=== PATIENT | male | born 1970 | race Caucasian/White ===

== ENCOUNTER 2018-11-07 19:32 | Observation (INO) ==
[2018-11-07 19:48] LABS: Basophils # 0.1 K/mm3 (0-0.2); Basophils % 0.6 % (0.1-2.0); Eosinophils # 0.1 K/mm3 (0.0-0.4); Eosinophils % 0.6 % (0.1-12.0); Hematocrit 43.9 % (42.0-52.0); Hemoglobin 14.8 g/dL (14.1-18.0); Lymphocytes # 2.3 K/mm3 (0.7-4.5); Lymphocytes % 25.2 % (10-50); Mean Corpuscular HGB Conc 33.6 g/dL (31.8-35.4); Mean Corpuscular Volume 88.5 fl (80-94); Mean Platelet Volume 7.1 fl (7.4-10.4); Monocytes # 0.5 K/mm3 (0.1-1.0); Monocytes % 5.1 % (1.7-9.3); Neutrophils # 6.1 K/mm3 (1.8-7.8); Neutrophils % 68.4 % (37.0-80.0); Platelet Count 267 K/mm3 (142-424); Red Blood Count 4.96 M/mm3 (4.60-6.20); White Blood Count 8.9 K/mm3 (4.8-10.8)
--- NOTE | 2018-11-07 20:25 | Emergency Department Note ---
ED Disposition Clinical Impression: Hypertension, Chest pain, Tobacco user Disposition: Admitted as Observation Condition on Discharge: Fair Time of Disposition: 20:33 - Critical Care Critical Care Time: No Attestation: On 11/07/18, the high probability of a clinically significant, sudden or life threatening deterioration of the following system(s) required my full and direct attention, intervention and personal management. The time I documented below is in addition to time spent performing reported procedures but includes the following listed in this critical care notation. Medical Decision Making - Medical Records Medical records reviewed: Yes: I reviewed the patient's medical records. - Yang Inquiry Pt receiving controlled substance: No Yang was queried for this patient: No Vital Signs: 11/07/18 19:32 11/07/18 19:42 Temperature 98.0 F Temperature Source Oral Pulse Rate [Right Radial] 96 H 101 H Respiratory Rate 18 19 Blood Pressure [Right Arm] 178/124 H 121/76 Blood Pressure Mean [Right Arm] 142 91 02 Sat by Pulse Oximetry 92 L 97 Oxygen Delivery Method Room Air - Lab Data Lab results reviewed: Yes: I reviewed the patient's lab results. Lab Results 11/07/18 19:37: WBC 8.9, RBC 4.96, Hgb 14.8, Hct 43.9, MCV 88.5, MCH 29.8, MCHC 33.6, RDW 13.0, Plt Count 267, MPV 7.1 L, Neut % (Auto) 68.4, Lymph % (Auto) 25.2, [place] % (Auto) 5.1, Eos % (Auto) 0.6, Baso % (Auto) 0.6, Neut # (Auto) 6.1, Lymph # (Auto) 2.3, [place] # (Auto) 0.5, Eos # (Auto) 0.1, Baso # (Auto) 0.1 11/07/18 20:00: Sodium 139, Potassium 3.3 L, Chloride 101, Carbon Dioxide 26, Anion Gap 15.3 H, BUN 15, Creatinine 1.23, Estimated Creat Clear 107, Estimated GFR 62, Est GFR ( Amer) 75, Glucose 124 H, Calcium 9.3, Troponin I < 0.02 Result diagrams: 11/07/18 19:37 11/07/18 20:00 Orders (Tests/Meds): ED MEDICATIONS Generic Name Dose Route Start Last Admin Trade Name Danilo PRN Reason Stop Dose Admin Nitroglycerin 1 gm 11/07/18 21:00 11/07/18 20:39 Nitroglycerin 1 Inch Oint Udp TD 12/07/18 20:59 1 gm TID RABIA Administration Discontinued Medications Generic Name Dose Route Start Last Admin Trade Name Danilo PRN Reason Stop Dose Admin Aspirin 324 mg 11/07/18 19:37 11/07/18 19:38 Aspirin 81mg Chewable Tablet PO 11/07/18 19:38 324 mg ONCE ONE Administration Nitroglycerin 0.4 mg 11/07/18 19:37 11/07/18 19:38 Nitrostat 0.4mg Sl Tablet SL 11/07/18 19:38 0.4 mg ONCE ONE Administration ORDERS Category Date Time Status XR chest 2V Stat Exams 11/07/18 19:36 Taken - Physician Consults Physician Consulted: eric Reason -: Pt condition Additional Consult: luther Reason -: Admission - VIRIDIANA Score for Non-Stemi Age of Patient: 50-59 years old Heart Rate: 90-109 bpm Systolic Blood Pressure: 160-199 mmHg Serum Creatinine: 1.20-1.59 mg/dl CHF [place] Class: I-No CHF Other Risk Factors: None Non-Stemi Risk Score: 76 General Adult HPI - General Chief complaint: Chest Pain Stated complaint: Chest Pain Time Seen by Provider: 11/07/18 20:15 Mode of Arrival: Ambulatory Source of Information: Patient Limitations: No Limitations Description of Symptoms (Recalled from ER Triage Doc. by RN): pt states he has been having left sided chest pain x 3-4 days that worsens at times. pt states he is getting "winded." pt states that he thought he was having reflux but the zantac isnt helping. pt states that this evening he walked outside and he started having the pain that radiates into his left arm and even into his leg. pt states he became short of breath and broke out in a sweat. pt states the pain feels like someone is standing on his chest. - Related Data Home Medications Medication Instructions Recorded Confirmed aspirin 81 mg tablet,delayed 81 mg PO DAILY tab 09/20/17 03/29/18 release Carvedilol [Carvedilol 6.25mg Tab] 6.25 mg PO BID 11/07/18 11/07/18 Losartan/Hydrochlorothiazide 1 tab PO DAILY 11/07/18 11/07/18 [Hyzaar 100-25 Tablet] Allergies Allergy/AdvReac Type Severity Reaction Status Date / Time No Known Allergies Allergy Verified 11/07/18 19:36 [facility] History - Hepatitis A Screen Drug use history?: No High risk sexual behaviors?: No History of sexually transmitted infection?: No Currently employed?: No Childcare worker?: No Do you have indoor plumbing?: Yes Do you have electricity?: Yes Attestation statement:: This patient has been screened for Hepatitis A risk factors. I have reviewed the patient's past medical history: Yes Medical History: Reports:: Coronary Artery Disease, Gastroesophageal Reflux Disease(GERD), Hyperlipidemia, Hypertension Denies:: Diabetes Mellitus Type 1, Diabetes Mellitus Type 2 Other Surgeries: Yes: Cardiac Catheterization - Social History Smoking Status: Current every day smoker Tobacco Type: cigarettes # Packs/Day (cigarettes): 1 Alcohol Intake: never Alcohol Intake Frequency:: holidays/special occasions only Substance Use Type: denies use Occupational Status: employed Household Members: spouse Family Hx:: Coronary Artery Disease, Heart Attack, Stroke ROS Obtained: Yes All systems reviewed & no additional complaints - Constitutional Constitutional: Reports fever(s) - Cardiovascular Cardiovascular: Reports chest pain, Reports chest pain at rest, Reports dyspnea - Respiratory Respiratory: Yes system reviewed and no additional complaints, except as docu, Yes cough, Yes dyspnea on exertion - Gastrointestinal Gastrointestingal: Denies: abdominal pain - Musculoskeletal Musculoskeletal: Denies joint pain, Denies joint stiffness, Denies joint swelling - Integumentary/Breasts Skin/Breast: Denies rash, Denies skin pain - Neurologic Neurologic: Denies abnormal gait, Denies abnormal movements, Denies confusion - Hematologic/Lymphatic Henatologic/Lymphatic: Denies easy bleeding, Denies easy bruising Physical Exam - General General appearance: alert, in no apparent distress - Head Head exam: atraumatic - Eye Eye exam: Present: normal appearance - ENT ENT exam: Present: normal exam, normal oropharynx, mucous membranes moist, TM's normal bilaterally, normal external ear exam - Neck Neck exam: Present: normal inspection, full ROM, trachea midline. Absent: meningismus, lymphadenopathy - Chest Chest inspection: Present: normal inspection, symmetric chest wall rise. Absent: tenderness - Respiratory Respiratory exam: Present: respiratory distress, wheezes. Absent: prolonged expiratory phase - Cardiovascular Cardiovascular exam: Present: regular rate, normal rhythm - Abdominal Exam Abdominal exam: Present: soft, normal bowel sounds. Absent: distention, tenderness, guarding - Extremities Exam Extremities exam: Present: normal inspection - Neurological Exam Neurological exam: Present: alert, oriented X3 - Psychiatric Psychiatric exam: Present: normal affect, normal mood - Skin Skin exam: Present: warm, dry, intact, normal color
[2018-11-07 20:26] LABS: Anion Gap 15.3 mEq/L (5-15); Blood Urea Nitrogen 15 mg/dL (7-18); Calcium 9.3 mg/dL (8.5-10.1); Carbon Dioxide 26 mmol/L (21.0-32.0); Chloride 101 mmol/L (98-107); Glucose 124 mg/dL (74-106); Sodium 139 mmol/L (136-145)
--- NOTE | 2018-11-07 21:50 | History & Physical Report ---
*Admission Date: 11/07/18 *Chief complaint: chest pain *History of present illness: this wm who has ongoing chest pain and had been seen by card about 2 weeks ago - presented to the ed - t states he has been having left sided chest pain x 3-4 days that worsens at times. pt states he is getting "winded." pt states that he thought he was having reflux but the zantac isnt helping. pt states that this evening he walked outside and he started having the pain that radiates into his left arm and even into his leg. pt states he became short of breath and broke out in a sweat. pt states the pain feels like someone is standing on his chest.pt had ntg which relieved his chest pain and was admitted for serial enz and card consult [facility] History I have reviewed the patient's past medical history: Yes Medical History: Reports:: Coronary Artery Disease, Gastroesophageal Reflux Disease(GERD), Hyperlipidemia, Hypertension Denies:: Diabetes Mellitus Type 1, Diabetes Mellitus Type 2 *Have you ever received a pneumonia vaccine?: No *Have you received a flu vaccine this season?: No Other Surgeries: Yes: Cardiac Catheterization - *Social History Smoking Status: Current every day smoker Tobacco Type: cigarettes # Packs/Day (cigarettes): 1 Alcohol Intake: never Alcohol Intake Frequency:: holidays/special occasions only Substance Use Type: denies use *Occupational Status:: employed Household Members: spouse *Travel in the last 8 weeks: None Family Hx:: Coronary Artery Disease, Heart Attack, Stroke Review of Systems - Review of Systems Review of systems:: pertinent systems reviewed and negative unless documented below - Constitutional Denies fever(s) - Eyes Denies change in vision - ENT Denies sore throat - *Cardiovascular Reports chest pain at rest, Reports chest pain with activity, Reports radiating jaw, neck or arm pain - *Respiratory Denies cough - *Gastrointestinal Denies abdominal pain - *Genitourinary Denies blood in urine - *Musculoskeletal Denies joint pain - Integumentary/Breasts Denies rash - *Neurologic Denies abnormal walking, Denies abnormal movements, Denies confusion - Psychiatric Denies anxiety Meds Home Medications Medication Instructions Recorded Confirmed Type aspirin 81 mg tablet,delayed 81 mg PO DAILY tab 09/20/17 11/07/18 History release Carvedilol [Carvedilol 6.25mg Tab] 6.25 mg PO BID 11/07/18 11/07/18 History Losartan/Hydrochlorothiazide 1 tab PO DAILY 11/07/18 11/07/18 History [Hyzaar 100-25 Tablet] Allergies Allergy/AdvReac Type Severity Reaction Status Date / Time No Known Allergies Allergy Verified 11/07/18 19:36 Exam Vital signs and Labs for Last 24 Hours: Temp Pulse Resp BP Pulse Ox 98 F 74 16 126/79 97 11/07/18 21:05 11/07/18 21:05 11/07/18 21:05 11/07/18 21:05 11/07/18 19:42 Laboratory Results - last 24 hr 11/07/18 19:37: WBC 8.9, RBC 4.96, Hgb 14.8, Hct 43.9, MCV 88.5, MCH 29.8, MCHC 33.6, RDW 13.0, Plt Count 267, MPV 7.1 L, Neut % (Auto) 68.4, Lymph % (Auto) 25.2, Lane % (Auto) 5.1, Eos % (Auto) 0.6, Baso % (Auto) 0.6, Neut # (Auto) 6.1, Lymph # (Auto) 2.3, Lane # (Auto) 0.5, Eos # (Auto) 0.1, Baso # (Auto) 0.1 11/07/18 20:00: Sodium 139, Potassium 3.3 L, Chloride 101, Carbon Dioxide 26, Anion Gap 15.3 H, BUN 15, Creatinine 1.23, Estimated Creat Clear 107, Estimated GFR 62, Est GFR ( Amer) 75, Glucose 124 H, Calcium 9.3, Troponin I < 0.02 I & O for Last 24 hours: Intake & Output 11/05/18 11/06/18 11/07/18 11/08/18 11:59 11:59 11:59 11:59 Weight 232 lb - Constitutional no acute distress, obese - *Routine HEENT Exam Head: Present: normocephalic Eye: Present: EOMI, PERRL ENT: Present: mucous membranes dry - *Routine Neck Exam Present: supple - *Routine Respiratory Exam Present: CTA bilaterally - *Routine Cardiovascular Exam Present: RRR, murmur - *Routine Abdominal Exam Present: soft - *Routine Extremities Exam Present: full ROM. Absent: calf tenderness - *Routine Skin Exam Present: intact - *Routine Neurological Exam Present: alert, oriented X3, CN II-XII intact - Routine Psychiatric Exam Present: normal affect Assessment and Plan (1) Obesity (BMI 30-39.9) Current visit: Yes Status: Acute Category: Medical Code(s): E66.9 - Obesity, unspecified (2) Chest pain Current visit: Yes Status: Acute Qualifiers: Chest pain type: precordial pain Qualified Code(s): R07.2 - Precordial pain Category: Medical Code(s): R07.9 - Chest pain, unspecified (3) Tobacco user Current visit: Yes Status: Chronic Category: Medical Code(s): Z72.0 - T obacco use (4) Hypertension Current visit: Yes Status: Acute Category: Medical Code(s): I10 - Essential (primary) hypertension
[2018-11-08 07:07] LABS: Basophils % 0.7 % (0.1-2.0); Eosinophils # 0.1 K/mm3 (0.0-0.4); Eosinophils % 1.5 % (0.1-12.0); Hematocrit 40.7 % (42.0-52.0); Hemoglobin 13.9 g/dL (14.1-18.0); Lymphocytes # 1.8 K/mm3 (0.7-4.5); Lymphocytes % 28.8 % (10-50); Mean Corpuscular Volume 90.7 fl (80-94); Monocytes # 0.5 K/mm3 (0.1-1.0); Monocytes % 8.4 % (1.7-9.3); Neutrophils # 3.8 K/mm3 (1.8-7.8); Neutrophils % 60.6 % (37.0-80.0); Platelet Count 243 K/mm3 (142-424); Red Blood Count 4.49 M/mm3 (4.60-6.20); Red Cell Distribution Width 13.2 % (11.5-17.5); White Blood Count 6.2 K/mm3 (4.8-10.8)
[2018-11-08 07:20] LABS: Chol/HDL Ratio 6.4 (1-3.5)
--- NOTE | 2018-11-08 07:22 | Pharmacy Consult Notes ---
[facility] Pharmacy VTE Monitoring - Patient Demographics Admission date: 11/07/18 Report Date: 11/08/18 Time: 07:21 Allergies/Adverse Reactions: Patient Allergies No Known Allergies Allergy (Verified 11/07/18 19:36) Height: 1.7 m Weight: 106.651 kg Patient Problems: Current Active Problems Hypertension (Acute) Chest pain (Acute) Obesity (BMI 30-39.9) (Acute) Tobacco user (Chronic) - VTE Risk Labs: VTE Related Lab Results Hgb 13.9 g/dL (14.1-18.0) L 11/08/18 06:30 Hct 40.7 % (42.0-52.0) L 11/08/18 06:30 Plt Count 243 K/mm3 (142-424) 11/08/18 06:30 BUN 15 mg/dL (7-18) 11/07/18 20:00 Creatinine 1.23 mg/dL (0.70-1.30) 11/07/18 20:00 Estimated Creat Clear 107 mL/min (50-200) 11/07/18 20:00 VTE Risk Level: Low Risk - Prophylaxis VTE Prophylaxis Ordered?: Yes Types of VTE Prophylaxis: TEDS Knee High Location of Applied Device: Bilateral Lower Extremeties - VTE Diagnosis Confirmed Treatment or plan recommended: Continue Current Treatment
[2018-11-08 08:07] LABS: Anion Gap 11.7 mEq/L (5-15); Calcium 8.7 mg/dL (8.5-10.1)
--- NOTE | 2018-11-08 08:12 | Consult Report ---
History of Present Illness Consult date: 11/08/18 Requesting physician: aZki Michelle Consult reason: chest pain Chief complaint: chest pain Additional Medical History:: 1. Hypertension 2. Hyperlipidemia 3. Tobacco use, continued, up to 2 packs/day 4. 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 DWIGHT II flow down the LAD. Circumflex artery is nondominant with mild [id number] disease. Ramus intermedius is a medium size vessel with mild luminal irregularities. RCA is a large dominant vessel with mild luminal irregularities throughout the entire course. It gives off multiple large distal marginal branches. DWIGHT II flow down the RCA. Normal ejection fraction with LVEDP at 10 mmHg. 5. Traumatic right hand injury, early 2018, off work with rehabilitation for 6 months History of present illness: this wm who has ongoing chest pain and had been seen by card about 2 weeks ago - presented to the ed - states he has been having left sided chest pain x 3-4 days that worsens at times. pt states he is getting "winded." pt states that he thought he was having reflux but the zantac isnt helping. pt states that this evening he walked outside and he started having the pain that radiates into his left arm and even into his leg. pt states he became short of breath and broke out in a sweat. pt states the pain feels like someone is standing on his chest.pt had ntg which relieved his chest pain and was admitted for serial enz and card consult The above per Dr. Michelle Patient had a cardiac catheterization in March 2015 noting mild to moderate coronary artery disease. Patient relates symptoms of just not feeling well for 3 to 4 days which was associated with some chest tightness but denies nausea, vomiting or diarrhea. He returned to work a couple of weeks ago working over 65 hours/week and 2 different jobs after being off for 8 months. He does note a lot of stress with working 2 jobs. Chest tightness with some left arm discomfort noted as above that improved after sublingual nitroglycerin. Patient also relates that his blood pressure was elevated in the ER (178/124 mm Hg but denies missing doses of meds) and the nitroglycerin helped that as well. He does continue to smoke but is interested in smoking cessation with combination of Wellbutrin and nicotine patches. Cardiac enzymes overnight have returned normal x3. EKG is sinus with left atrial enlargement and no acute ST segment changes. Mild repolarization changes noted laterally. Patient relates a stress test last year that was unremarkable. No recurrent chest pain since admission. [facility] History Medical History: Reports:: Coronary Artery Disease, Gastroesophageal Reflux Disease(GERD), Hyperlipidemia, Hypertension Denies:: Diabetes Mellitus Type 1, Diabetes Mellitus Type 2 *Have you ever received a pneumonia vaccine?: No *Have you received a flu vaccine this season?: No Laterality Cases: Right: Other Other Surgeries: Yes: Cardiac Catheterization, Cholecystectomy - *Social History Educational Level: Completed Grade School Smoking Status: Current every day smoker Tobacco Type: cigarettes # Packs/Day (cigarettes): 2 Alcohol Intake: former Alcohol Intake Frequency:: holidays/special occasions only Substance Use Type: denies use *Occupational Status:: employed Housing: house Household Members: spouse *Travel in the last 8 weeks: None Family Hx:: Coronary Artery Disease, Heart Attack, Stroke Meds Home Medications Medication Instructions Recorded Confirmed Type aspirin 81 mg tablet,delayed 81 mg PO DAILY tab 09/20/17 11/07/18 History release Carvedilol [Carvedilol 6.25mg Tab] 6.25 mg PO BID 11/07/18 11/07/18 History Losartan/Hydrochlorothiazide 1 tab PO DAILY 11/07/18 11/07/18 History [Hyzaar 100-25 Tablet] Allergies Allergy/AdvReac Type Severity Reaction Status Date / Time No Known Allergies Allergy Verified 11/07/18 19:36 Review of Systems - *Cardiovascular Reports chest pain, Reports shortness of breath with activity - *Respiratory Reports shortness of breath with activity, Denies chest congestion - *Gastrointestinal Reports heartburn, Denies abdominal pain, Denies nausea, Denies vomiting - *Genitourinary Denies blood in urine - *Musculoskeletal Reports joint pain, Reports back pain - *Neurologic Denies abnormal walking, Denies abnormal movements, Denies confusion Exam Vital signs and Labs for Last 24 Hours: Temp Pulse Resp BP Pulse Ox 97.7 F 59 L 18 117/61 96 11/08/18 07:52 11/08/18 07:52 11/08/18 07:52 11/08/18 07:52 11/08/18 07:52 Laboratory Results - last 24 hr 11/07/18 19:37: WBC 8.9, RBC 4.96, Hgb 14.8, Hct 43.9, MCV 88.5, MCH 29.8, MCHC 33.6, RDW 13.0, Plt Count 267, MPV 7.1 L, Neut % (Auto) 68.4, Lymph % (Auto) 25.2, [place] % (Auto) 5.1, Eos % (Auto) 0.6, Baso % (Auto) 0.6, Neut # (Auto) 6.1, Lymph # (Auto) 2.3, [place] # (Auto) 0.5, Eos # (Auto) 0.1, Baso # (Auto) 0.1 11/07/18 20:00: Sodium 139, Potassium 3.3 L, Chloride 101, Carbon Dioxide 26, Anion Gap 15.3 H, BUN 15, Creatinine 1.23, Estimated Creat Clear 107, Estimated GFR 62, Est GFR ( Amer) 75, Glucose 124 H, Calcium 9.3, Troponin I < 0.02 11/07/18 23:45: Troponin I < 0.02 11/08/18 02:45: Troponin I < 0.02 11/08/18 06:30: WBC 6.2 D, RBC 4.49 L, Hgb 13.9 L, Hct 40.7 L, MCV 90.7, MCH 30.9, MCHC 34.0, RDW 13.2, Plt Count 243, MPV 7.0 L, Neut % (Auto) 60.6, Lymph % (Auto) 28.8, [place] % (Auto) 8.4, Eos % (Auto) 1.5, Baso % (Auto) 0.7, Neut # (Auto) 3.8, Lymph # (Auto) 1.8, [place] # (Auto) 0.5, Eos # (Auto) 0.1, Baso # (Auto) 0.0 I & O for Last 24 hours: Intake & Output 11/05/18 11/06/18 11/07/18 11/08/18 11:59 11:59 11:59 11:59 Intake Total 1041 / 1041 Output Total 1100 / 1100 Balance -59 / -59 Weight 235 lb 2 oz - *Routine Neck Exam Present: supple. Absent: JVD, carotid bruit - *Routine Respiratory Exam Present: CTA bilaterally. Absent: accessory muscle use, rales, rhonchi, wheezes - *Routine Cardiovascular Exam Present: RRR. Absent: murmur, gallop, rubs - *Routine Abdominal Exam Present: soft. Absent: tenderness, distended, guarding - *Routine Extremities Exam Absent: edema, calf tenderness - *Routine Neurological Exam Present: alert, oriented X3, moving all extremities Assessment and Plan (1) Chest pain Current visit: Yes Status: Acute Qualifiers: Chest pain type: precordial pain Qualified Code(s): R07.2 - Precordial pain Category: Medical Code(s): R07.9 - Chest pain, unspecified (2) Coronary arteriosclerosis Current visit: No Status: Chronic Category: Medical Code(s): I25.10 - Atherosclerotic heart disease of [place] coronary artery without angina pectoris (3) Obesity (BMI 30-39.9) Current visit: Yes Status: Acute Category: Medical Code(s): E66.9 - Obesity, unspecified (4) Tobacco user Current visit: Yes Status: Chronic Category: Medical Code(s): Z72.0 - Tobacco use (5) Hypertension Current visit: Yes Status: Acute Category: Medical Code(s): I10 - Essential (primary) hypertension (6) Hyperlipidemia Current visit: No Status: Chronic Qualifiers: Hyperlipidemia type: mixed hyperlipidemia Qualified Code(s): E78.2 - Mixed hyperlipidemia Category: Medical Code(s): E78.5 - Hyperlipidemia, unspecified - Assessment and plan all Dx Assessment and Plan for all problems:: 1. Chest pain with markedly elevated blood pressure, improved after nitroglycerin. Cardiac enzymes normal x3 with no acute EKG changes. Discussed options of stress testing and cardiac cath with the patient, I do not feel cardi ac cath is indicated at this time but would recommend proceeding with stress testing. Patient is in agreement and would like to proceed in this fashion at this time. 2. Continue home medications 3. Continue to follow blood pressure and see blood pressure response to exercise during stress test. 4. Further recommendations to follow pending above results.
--- NOTE | 2018-11-08 13:28 | Electrocardiograph Report ---
APPROVED REPORT Exam: Resting ECG HR:94 bpm ECG Measurements Heart Rate 94 AXES CA 178 P 59 QRSd 92 QRS 50 QT 334 T31 QTc 417 <Conclusion> Normal sinus rhythm Possible Left atrial enlargement Borderline ECG Electronically signed by : Jake Saldana, 11/08/2018 13:27:20
--- NOTE | 2018-11-08 15:51 | Progress Note ---
Internal Medicine - PN: Subj *Date: 11/08/18 *Time: 09:30 Interval history: 48 YOM sitting up in bed, denies any further CP. He is scheduled for a Stress Test this AM and is agreeable to that. Exam Vital signs and Labs for Last 24 Hours: Temp Pulse Resp BP Pulse Ox 97.7 F 50 L 18 117/61 96 11/08/18 07:52 11/08/18 08:00 11/08/18 07:52 11/08/18 07:52 11/08/18 07:52 Laboratory Results - last 24 hr 11/07/18 19:37: WBC 8.9, RBC 4.96, Hgb 14.8, Hct 43.9, MCV 88.5, MCH 29.8, MCHC 33.6, RDW 13.0, Plt Count 267, MPV 7.1 L, Neut % (Auto) 68.4, Lymph % (Auto) 25.2, [place] % (Auto) 5.1, Eos % (Auto) 0.6, Baso % (Auto) 0.6, Neut # (Auto) 6.1, Lymph # (Auto) 2.3, [place] # (Auto) 0.5, Eos # (Auto) 0.1, Baso # (Auto) 0.1 11/07/18 20:00: Sodium 139, Potassium 3.3 L, Chloride 101, Carbon Dioxide 26, Anion Gap 15.3 H, BUN 15, Creatinine 1.23, Estimated Creat Clear 107, Estimated GFR 62, Est GFR ( Amer) 75, Glucose 124 H, Calcium 9.3, Troponin I < 0.02 11/07/18 23:45: Troponin I < 0.02 11/08/18 02:45: Troponin I < 0.02 11/08/18 06:30: WBC 6.2 D, RBC 4.49 L, Hgb 13.9 L, Hct 40.7 L, MCV 90.7, MCH 30.9, MCHC 34.0, RDW 13.2, Plt Count 243, MPV 7.0 L, Neut % (Auto) 60.6, Lymph % (Auto) 28.8, [place] % (Auto) 8.4, Eos % (Auto) 1.5, Baso % (Auto) 0.7, Neut # (Auto) 3.8, Lymph # (Auto) 1.8, [place] # (Auto) 0.5, Eos # (Auto) 0.1, Baso # (Auto) 0.0 11/08/18 06:30: Sodium 140, Potassium 3.7, Chloride 104, Carbon Dioxide 28, Anion Gap 11.7, BUN 13, Creatinine 1.04, Estimated Creat Clear 128, Estimated GFR 76, Est GFR ( Amer) 91 D, Glucose 106, Calcium 8.7 11/08/18 06:30: Triglycerides 116, Cholesterol 174, LDL Cholesterol 124, VLDL Cholesterol 23, HDL Cholesterol 27, Cholesterol/HDL Ratio 6.4 H 11/08/18 06:30: Hemoglobin A1c 5.9 I & O for Last 24 hours: Intake & Output 11/05/18 11/06/18 11/07/18 11/08/18 23:59 23:59 23:59 23:59 Intake Total 1041 / 1041 Output Total 1750 / 1750 Balance -709 / -709 Weight 235 lb 6 oz 235 lb 2 oz - Constitutional no acute distress - *Routine HEENT Exam Head: Present: normocephalic. Absent: scalp tenderness, tenderness of temporal artery - *Routine Neck Exam Present: supple, full ROM, trachea midline. Absent: thyromegaly, tracheal deviation - *Routine Respiratory Exam Present: wheezes. Absent: accessory muscle use, rales - *Routine Cardiovascular Exam Present: RRR. Absent: JVD - *Routine Abdominal Exam Present: soft, normoactive bowel sounds. Absent: tenderness, firm - Routine Back/Spine/Pelvis Exam Back/Spine: Present: full ROM. Absent: CVA tenderness, pain with flexion - *Routine Skin Exam Present: intact. Absent: jaundice, wounds - *Routine Neurological Exam Present: alert, oriented X3, CN II-XII intact. Absent: nystagmus, tremors - Routine Psychiatric Exam Present: normal affect, normal thought process. Absent: suicidal ideation, homicidal ideation Assessment and Plan (1) Chest pain Current visit: Yes Status: Acute Qualifiers: Chest pain type: precordial pain Qualified Code(s): R07.2 - Precordial pain Category: Medical Code(s): R07.9 - Chest pain, unspecified (2) Coronary arteriosclerosis Current visit: No Status: Chronic Category: Medical Code(s): I25.10 - Atherosclerotic heart disease of [place] coronary artery without angina pectoris (3) Obesity (BMI 30-39.9) Current visit: Yes Status: Acute Category: Medical Code(s): E66.9 - Obesity, unspecified (4) Tobacco user Current visit: Yes Status: Chronic Category: Medical Code(s): Z72.0 - Tobacco use (5) Hypertension Current visit: Yes Status: Acute Category: Medical Code(s): I10 - Essential (primary) hypertension (6) Hyperlipidemia Current visit: No Status: Chronic Qualifiers: Hyperlipidemia type: mixed hyperlipidemia Qualified Code(s): E78.2 - Mixed hyperlipidemia Category: Medical Code(s): E78.5 - Hyperlipidemia, unspecified - Assessment and plan all Dx Assessment and Plan for all problems:: Patient discussed w/ Dr. Michelle, all orders per Dr. Michelle Cards has seen and rec: 1. Chest pain with markedly elevated blood pressure, improved after nitroglycerin. Cardiac enzymes normal x3 with no acute EKG changes. Discussed options of stress testing and cardiac cath with the patient, I do not feel cardiac cath is indicated at this time but would recommend proceeding with stress testing. Patient is in agreement and would like to proceed in this fashion at this time. 2. Continue home medications 3. Continue to follow blood pressure and see blood pressure response to exercise during stress test. 4. Further recommendations to follow pending above results.
[2018-11-08 16:10] VITALS: BP 135/79
--- NOTE | 2018-11-08 17:10 | Discharge Summary ---
General - General Admission date:: 11/07/18 Discharge date: 11/08/18 HPI HPI: this wm who has ongoing chest pain and had been seen by card about 2 weeks ago - presented to the ed - t states he has been having left sided chest pain x 3-4 days that worsens at times. pt states he is getting "winded." pt states that he thought he was having reflux but the zantac isnt helping. pt states that this evening he walked outside and he started having the pain that radiates into his left arm and even into his leg. pt states he became short of breath and broke out in a sweat. pt states the pain feels like someone is standing on his chest.pt had ntg which relieved his chest pain and was admitted for serial enz and card consult Hospital Course Hospital Course: this wm who has ongoing chest pain and had been seen by card about 2 weeks ago - presented to the ed - states he has been having left sided chest pain x 3-4 days that worsens at times. pt states he is getting "winded." pt states that he thought he was having reflux but the zantac isnt helping. pt states that this evening he walked outside and he started having the pain that radiates into his left arm and even into his leg. pt states he became short of breath and broke out in a sweat. pt states the pain feels like someone is standing on his chest.pt had ntg which relieved his chest pain and was admitted for serial enz and card consult (per Dr. Michelle) Patient had a cardiac catheterization in March 2015 noting mild to moderate coronary artery disease. Patient relates symptoms of just not feeling well for 3 to 4 days which was asso ciated with some chest tightness but denies nausea, vomiting or diarrhea. He returned to work a couple of weeks ago working over 65 hours/week and 2 different jobs after being off for 8 months. He does note a lot of stress with working 2 jobs. Chest tightness with some left arm discomfort noted as above that improved after sublingual nitroglycerin. Patient also relates that his blood pressure was elevated in the ER (178/124 mm Hg but denies missing doses of meds) and the nitroglycerin helped that as well. He does continue to smoke but is interested in smoking cessation with combination of Wellbutrin and nicotine patches. Cardiac enzymes overnight have returned normal x3. EKG is sinus with left atrial enlargement and no acute ST segment changes. Mild repolarization changes noted laterally. Patient relates a stress test last year that was unremarkable. No recurrent chest pain since admission. (per Harsh TAYLOR) 11/07/2018 CXR: IMPRESSION: Nothing definitely acute. Dictated by: Manoj Randall MD 11/07/2018 22:29 11/08/2018 Stress Test: Stress test shows abnormality in the anterior wall with LVEF of 52%. Pt is requesting to be D/C home today and will attend F/U Cards appt. next week. Will return to ED for CP, SOA, or other complaints Will discuss smoking cessation at PCP F/U Objective Vital signs: Temp Pulse Resp BP Pulse Ox 98.2 F 69 18 135/79 100 11/08/18 16:00 11/08/18 16:00 11/08/18 16:00 11/08/18 16:00 11/08/18 16:00 no acute distress - *Routine HEENT Exam Head: Present: normocephalic, atraumatic. Absent: tenderness of temporal artery Eye: Present: EOMI, PERRL ENT: Present: mucous membranes moist - *Routine Neck Exam Present: supple, full ROM, trachea midline. Absent: JVD, tracheal deviation - *Routine Respiratory Exam Present: wheezes. Absent: rales, crackles - *Routine Cardiovascular Exam Present: RRR. Absent: JVD - *Routine Abdominal Exam Present: soft, normoactive bowel sounds. Absent: tenderness, firm - *Routine Extremities Exam Present: full ROM, pulses intact. Absent: cyanosis, calf tenderness - Routine Back/Spine/Pelvis Exam Back/Spine: Present: full ROM. Absent: CVA tenderness, pain with flexion - *Routine Skin Exam Present: intact, normal turgor. Absent: cyanosis, jaundice - *Routine Neurological Exam Present: alert, oriented X3, CN II-XII intact, normal speech. Absent: altered mental status, tremors - Routine Psychiatric Exam Present: normal affect, normal thought process. Absent: suicidal ideation, homicidal ideation Results Labs on day of discharge: Labs from last 24 hours 11/08/18 11/08/18 11/08/18 06:30 06:30 06:30 WBC RBC Hgb Hct MCV MCH MCHC RDW Plt Count MPV Neut % (Auto) Lymph % (Auto) [place] % (Auto) Eos % (Auto) Baso % (Auto) Neut # (Auto) Lymph # (Auto) [place] # (Auto) Eos # (Auto) Baso # (Auto) Sodium 140 Potassium 3.7 Chloride 104 Carbon Dioxide 28 Anion Gap 11.7 BUN 13 Creatinine 1.04 Estimated Creat Clear 128 Estimated GFR 76 Est GFR ( Amer) 91 D Glucose 106 Hemoglobin A1c 5.9 Calcium 8.7 Troponin I Triglycerides 116 Cholesterol 174 LDL Cholesterol 124 VLDL Cholesterol 23 HDL Cholesterol 27 Cholesterol/HDL Ratio 6.4 H 11/08/18 11/08/18 11/07/18 06:30 02:45 23:45 WBC 6.2 D RBC 4.49 L Hgb 13.9 L Hct 40.7 L MCV 90.7 MCH 30.9 MCHC 34.0 RDW 13.2 Plt Count 243 MPV 7.0 L Neut % (Auto) 60.6 Lymph % (Auto) 28.8 [place] % (Auto) 8.4 Eos % (Auto) 1.5 Baso % (Auto) 0.7 Neut # (Auto) 3.8 Lymph # (Auto) 1.8 [place] # (Auto) 0.5 Eos # (Auto) 0.1 Baso # (Auto) 0.0 Sodium Potassium Chloride Carbon Dioxide Anion Gap BUN Creatinine Estimated Creat Clear Estimated GFR Est GFR ( Amer) Glucose Hemoglobin A1c Calcium Troponin I < 0.02 < 0.02 Triglycerides Cholesterol LDL Cholesterol VLDL Cholesterol HDL Cholesterol Cholesterol/HDL Ratio 11/07/18 11/07/18 20:00 19:37 WBC 8.9 RBC 4.96 Hgb 14.8 Hct 43.9 MCV 88.5 MCH 29.8 MCHC 33.6 RDW 13.0 Plt Count 267 MPV 7.1 L Neut % (Auto) 68.4 Lymph % (Auto) 25.2 [place] % (Auto) 5.1 Eos % (Auto) 0.6 Baso % (Auto) 0.6 Neut # (Auto) 6.1 Lymph # (Auto) 2.3 [place] # (Auto) 0.5 Eos # (Auto) 0.1 Baso # (Auto) 0.1 Sodium 139 Potassium 3.3 L Chloride 101 Carbon Dioxide 26 Anion Gap 15.3 H BUN 15 Creatinine 1.23 Estimated Creat Clear 107 Estimated GFR 62 Est GFR ( Amer) 75 Glucose 124 H Hemoglobin A1c Calcium 9.3 Troponin I < 0.02 Triglycerides Cholesterol LDL Cholesterol VLDL Cholesterol HDL Cholesterol Cholesterol/HDL Ratio - Additional Comments Discussed w/ Dr. Michelle, all orders per Dr. Michelle Cards Recs: Will reduce losartan/HCT 100/25 mg to 0.5 tab daily Continue coreg 6.25 mg BID ADD NORVASC 5 mg daily OK for discharge home Follow up in one week to decide on need for cath. DS: Diagnosis - Discharge Diagnosis (1) Chest pain Status: Acute (2) Coronary arteriosclerosis Status: Chronic (3) Obesity (BMI 30-39.9) Status: Acute (4) Tobacco user Status: Chronic (5) Hypertension Status: Acute (6) Hyperlipidemia Status: Chronic Discharge Plan - Patient Discharge Instructions ACTIVITY: Continue current activity DIET: continue same diet Patient Instructions: Nicotine Addiction, High Blood Pressure, DI for Chest Pain, How to Quit Smoking - Follow up Plan Follow up with: Richi Rooney MD [Staff Physician] - 1 week Zaki Michelle MD [Emergency Provider] - 2 weeks Disposition: Home, Self-Nursing Home Medications: Home Medications Medication Instructions Recorded Confirmed Type aspirin 81 mg tablet,delayed 81 mg PO DAILY tab 09/20/17 11/07/18 History release Carvedilol [Carvedilol 6.25mg Tab] 6.25 mg PO BID 11/07/18 11/07/18 History Losartan/Hydrochlorothiazide 1 tab PO DAILY 11/07/18 11/07/18 History [Hyzaar 100-25 Tablet] Amlodipine Besylate [Norvasc 5mg 5 mg PO DAILY 30 Days #30 tab 11/08/18 Rx tablet] Prescriptions/Medication Reconciliation: New Amlodipine Besylate [Norvasc 5mg tablet] 5 mg PO DAILY 30 Days #30 tab Continued aspirin 81 mg tablet,delayed release 81 mg PO DAILY tab Carvedilol [Carvedilol 6.25mg Tab] 6.25 mg PO BID Changed Losartan/Hydrochlorothiazide [Hyzaar 100-25 Tablet] 0.5 tab PO DAILY 30 Days #15 - Problem Reconciliation Problems Reviewed?: Yes
--- NOTE | 2018-11-08 21:06 | Cardiology Report ---
APPROVED REPORT EXAM: Comprehensive 2D, Doppler, and color-flow Echocardiogram Esl Professor: Sharlene Peter CRT Ht: 5 ft 7 in Wt: 232lbs BSA: 2.15 BP: 129/84 mmHg Indications: Chest Pain 2D Dimensions LVOT 2.00 cm (M/F) 1.5-2.5 M-Mode Dimensions RVDd 2.40 cm (0.9-2.6)LA Diam 4.50 cm (1.9-4.0) LVDd 6.20 cm (3.5-5.7)Ao Diam 3.30 cm (2.0-3.7) LVDs 3.90 cm (3.5-5.7)AV Cusp 2.10 cm (1.5-2.6) IVSd 1.20 cm (0.6-1.1)PWd 0.60 cm (0.6-1.1) EF (Teich) 66.00% FS 37.10% EDV (Teich) 194.00 mLESV (Teich) 65.90 mL LV Diastology E/A Ratio 1.40MED E' 9.26 (< 7 cm/sec) E'/MED E' Ratio9.50 (>14)LAT E' 7.99 (<10 cm/sec) E/LAT E' Ratio 11.00 (>14) Aortic Valve AoV Peak Levar. 152.00 (50-130 cm/s)AO Peak GR. 9.00 mmHg Mitral Valve MV E Max Levar. 87.90 (40-130 cm/s)MV A Velocity 62.70 (40-130 cm/s) E/A Ratio 1.40 Pulmonary Valve NY End VMAX 126.00 cm/s PA Accel Time 180.00 (>120 msec) Tricuspid Valve TR P. [id number] cm/s Left Ventricle Left atrium is normal size, left ventricle is normal size, visually estimated ejection fraction 55% with no regional wall motion abnormality. There is no concentric left ventricular hypertrophy, diastolic parameters are within normal range. Right Ventricle Right atrium and left ventricular normal size and contractility. Aortic Valve Aortic valve is minimally thickened and calcified, leaflet continue to display good mobility. There is no aortic stenosis aortic insufficiency. Mitral Valve Mitral valve is grossly normal, there is no mitral stenosis, there is mild mitral regurgitation. Tricuspid Valve Tricuspid valve is grossly normal, there is mild tricuspid regurgitation, tricuspid regurgitation jet velocity is inadequate for calculation of the right ventricular systolic pressure. Pulmonic Valve Is grossly normal, there is mild pulmonic insufficiency Great Vessels Aortic root and ascending aorta is normal size. Pericardium No significant pericardial effusion noted. Conclusion 1. Normal left ventricular size, preserved left ventricular systolic function, visually estimated ejection fraction 55% with no regional wall motion abnormality, diastolic parameters are within normal range. 2. Mild mitral and tricuspid regurgitation. Tricuspid regurgitation jet velocity is inadequate for estimation of the right ventricular systolic pressure. 3. No significant pericardial effusion noted. Electronically signed by : Sharad Marcial, 11/08/2018 21:05:51
--- NOTE | 2018-11-11 09:23 | Cardiology Report ---
APPROVED REPORT Exam: Exercise Treadmill Technologist: Pallavi Winston, Ht: 5 ft 7 in Wt: 235 lbs BSA: 2.17 m2 HR: 61 bpm BP: 131/79 mmHg Indications: Chest pain Medical History Medications: Aspirin,,,,, Carvedilol,,,,, Losartan/HCTZ,,,,, Stress Test Details Test: Paul HR Resting HR: 66 bpmMax Heart Rate (APMHR): 170 bpm Max HR Achieved: 130 bpmTarget HR (85% APMHR): 144 bpm % of APMHR: 76 Recovery HR: 74 bpm BP Resting BP: 131/79 mmHg Max BP: 166/75 mmHg Recovery BP: 139.0/86.0 mmHg ECG Clinical Exercise duration: 06:00 min Highest Stage Achieved: Exercise capacity: 7.0 METs Stress ECG Conclusion Resting ECG: Normal sinus rhythm, PVC, early repolarization changes. Patient exercised to maximum effort which was 6:00 on Paul Protocol. Mets: 7.0 Symptoms: No chest pain Arrhythmias/Ectopy: Occasional PVC ST-T Changes: Normal ST response to exercise for heart rate achieved. Conclusion: non diagnostic due to Target heart rate not acheived Blunted heart rate on beta rosamaria Myoview images reported separately. Test Summary [id number]./ .Stop exercise at 06:00 REST.......Sitting REST.......Standing REST04:560.00.066.131/ 79.. Stage 101:0010.01.793.... Stage 102:0010.01.799.... Stage 103:0010.01.7103.138/ 68.. Stage 201:0012.02.5116.... Stage 2.......Myoview Injected Stage 202:0012.02.5127.... Stage 203:0012.02.5124...Stop exercise at 06:00 [id number]:000.00.0116.166/ 75.. QWVFISXU70:000.00.0100.166/ 75.. YKEOFLJC55:000.00.085.145/ 85.. UXSBAHIN85:000.00.072.145/ 85.. FCDDMKKS00:000.00.071.139/ 86.. DIGGTTCQ22:170.00.075.139/ .. Electronically signed by : Sharad Marcial, 11/11/2018 09:23:20
== END 2018-11-08 18:11 | disposition home or self-care (01) ==
LOC: 2ND 19:32 → ER 19:32 → 2ND 21:17
PROVIDERS: ADMIT Emergency Medicine; ATTEND Emergency Medicine
DX: E66.9 Obesity, unspecified; E78.2 Mixed hyperlipidemia; I25.10 Atherosclerotic heart disease of native coronary artery without angina pectoris; Z79.899 Other long term (current) drug therapy; R07.2 Precordial pain; Z72.0 Tobacco use; I10 Essential (primary) hypertension; K21.9 Gastro-esophageal reflux disease without esophagitis; Z79.82 Long term (current) use of aspirin
CPT/HCPCS: 36415; 71020; 71046; 78452; 80048; 80061; 83036; 84484; 85025; 93005; 93017; 93306; 99284; A9502; G0378

== ENCOUNTER → 2021-04-09 08:12 | Outpatient (CLI) | payer OTHER, SELFPAY ==
--- NOTE | 2021-04-09 08:12 | MR_ITS ---
FINAL REPORT CLINICAL HISTORY: L Shoulder pain, INJURY WHILE LIFTING HEAVY EQUIPMENT AT WORK 2-3 WEEKS AGO, LIMITED ROM. NO PRIOR FINDINGS: Multiplanar MR imaging of the left shoulder was performed without contrast. Motion on many of the images decreases exam sensitivity. There is a focal full-thickness tear at the anterior footprint of the supraspinatus tendon measuring 10 mm in AP dimensions. There is mild degenerative change of the acromioclavicular joint. There is a small amount of fluid in the joint and the subacromial/subdeltoid bursa. Abnormal morphology of the superior labrum is worrisome for a SLAP tear. There is thickening of the joint capsule at the axillary recess of uncertain etiology. The long head of the biceps tendon is intact. There is no evidence of fracture or dislocation. The musculature is intact. There is no evidence of soft tissue mass. IMPRESSION: Focal full-thickness tear of the supraspinatus tendon. Findings worrisome for SLAP tear of the superior labrum. Thickening of the joint capsule at the axillary recess of uncertain etiology may represent partial avulsion of the humeral attachment of the glenohumeral ligament. Reviewed, Interpreted and Dictated by Kimo Bustamante III, MD Transcribed by German Hobbs Authenticated by Kimo Bustamante III, MD on 04/09/2021 10:30:51 AM [facility]
== END ==
PROVIDERS: PCP Nurse Practitioner Family; Visit Provider Nurse Practitioner Family
DX: M25.512 Pain in left shoulder (principal)
CPT/HCPCS: 73221

== ENCOUNTER → 2021-04-30 08:17 | Outpatient (CLI) | payer OTHER, SELFPAY ==
--- NOTE | 2021-04-30 08:37 | XR_ITS ---
FINAL REPORT CLINICAL HISTORY: . FINDINGS: LEFT SHOULDER 3 views of the left shoulder were obtained. There is no acute fracture or dislocation. Visualized joint spaces are normally aligned. Soft tissues are unremarkable. IMPRESSION: No acute bony abnormality. Reviewed, Interpreted and Dictated by Clifton Dorsey MD Transcribed by Lissy Saenz Authenticated by Clifton Dorsey MD on 04/30/2021 10:51:34 AM [facility]
== END ==
PROVIDERS: PCP Nurse Practitioner Family; Visit Provider Orthopaedic Surgery
DX: M25.512 Pain in left shoulder (principal)
CPT/HCPCS: 73030

== ENCOUNTER → 2021-05-05 07:13 | Outpatient (CLI) | payer BC, SELFPAY ==
[2021-05-05 08:05] LABS: Basophils # 0.1 K/mm3 (0-0.2); Basophils % 0.8 % (0.1-2.0); Eosinophils # 0.1 K/mm3 (0.0-0.4); Hematocrit 45.3 % (42.0-52.0); Hemoglobin 15.7 g/dL (14.1-18.0); Lymphocytes # 1.5 K/mm3 (0.7-4.5); Lymphocytes % 20.1 % (10-50); Mean Corpuscular HGB Conc 34.7 g/dL (31.8-35.4); Mean Corpuscular Hemoglobin 30.9 pg (27.0-31.2); Mean Platelet Volume 7.4 fl (7.4-10.4); Monocytes # 0.5 K/mm3 (0.1-1.0); Monocytes % 7.4 % (1.7-9.3); Neutrophils # 5.2 K/mm3 (1.8-7.8); Neutrophils % 70.7 % (37.0-80.0); Platelet Count 275 K/mm3 (142-424); Red Blood Count 5.09 M/mm3 (4.60-6.20); Red Cell Distribution Width 13.1 % (11.5-17.5); White Blood Count 7.3 K/mm3 (4.8-10.8)
[2021-05-05 08:27] LABS: Chloride 100 mmol/L (98-107); Sodium 133 mmol/L (136-145)
[2021-05-05 08:28] LABS: Potassium 3.7 mmoL/L (3.5-5.1)
[2021-05-05 08:30] LABS: Alanine Aminotransferase 25 U/L (12-78); Alkaline Phosphatase 75 U/L (38-126); Anion Gap 12.7 mEq/L (5-15); Aspartate Amino Transferase 27 U/L (17-59); Bilirubin,Direct 0.4 mg/dl (0.0-0.4); Bilirubin,Indirect 0.1 mg/dL (0.0-0.9); Bilirubin,Total 0.5 mg/dl (0.2-1.3); Bilirubin,Unconjugated 0.1 mg/dL (0.0-1.1); Blood Urea Nitrogen 13 mg/dl (9-20); Carbon Dioxide 24 mmol/L (22.0-30.0); Cholesterol 166 mg/dl (140-200); Estimated Glomerular Filt Rate 78 ml/min (>60); GFR (African American) 95 ML/MIN (>60); Triglycerides 204 mg/dl (30-150); VLDL Cholesterol 41 mg/dL (0-40)
[2021-05-05 08:31] LABS: Albumin Level 4.5 g/dl (3.5-5.0); Calcium 8.6 mg/dl (8.4-10.2); Chol/HDL Ratio 5.4 (1-3.5); Glucose 137 mg/dl (74-100); HDL Cholesterol 31 mg/dl (40-60)
[2021-05-05 08:42] LABS: Direct LDL Cholesterol 109.44 mg/dL (100-129)
== END ==
PROVIDERS: Nurse Practitioner Family; Visit Provider Internal Medicine
DX: Z01.812 Encounter for preprocedural laboratory examination (principal); U07.1 COVID-19; I25.10 Atherosclerotic heart disease of native coronary artery without angina pectoris; I11.9 Hypertensive heart disease without heart failure; E78.2 Mixed hyperlipidemia; N52.2 Drug-induced erectile dysfunction; Z72.0 Tobacco use
CPT/HCPCS: 36415; 80048; 80061; 80076; 85025; C9803; U0003; U0005

== ENCOUNTER → 2021-06-03 09:06 | Outpatient (CLI) | payer BC, SELFPAY | PROVIDERS: Visit Provider Internal Medicine | DX: Z01.812 Encounter for preprocedural laboratory examination (principal); Z11.52 Encounter for screening for COVID-19 | CPT/HCPCS: C9803; U0003; U0005 ==

== ENCOUNTER 2021-06-05 07:54 | Day surgery (SDC) | payer BC, SELFPAY ==
[2021-06-05] VITALS (15 sets, daily range): BP systolic 111–151; BP diastolic 61–86; PULSE 60–76; RESP 16–18; O2SAT 93–99; BMI 36.6
--- NOTE | 2021-06-05 | IR_ITS ---
APPROVED REPORT Patient Location: Outpatient Frame Wirer: MABEL Anderson RT (R) PROCEDURES Left heart catheterization Left ventriculogram Selective coronary angiogram FFR to the LAD Drug-eluting stent deployment to the proximal mid LAD INDICATION Coronary artery disease, Abnormal Myoview anterior ischemia, Ischemic response to adenosine with an FFR index of 0.78 in the LAD Informed consent was obtained prior to the procedure. COMPLICATIONS NONE Estimated Blood Loss: LESS THAN 10 ML TECHNIQUE One percent lidocaine used to anesthetize the right anterior aspect of the wrist. The right radial artery was accessed via the Seldinger technique. A 6 Samoan sheath was placed in the right radial artery. 2.5 mg of verapamil, 800 mcg of nitroglycerin, 1mg Lidocaine and 5000 U Heparin were given through the arterial sheath. The papa catheter was also used to perform left heart catheterization, left ventriculogram and selective coronary angiogram. At the end the diagnostic angiogram the Poppa catheter was exchanged for a 6 [place] JL 3 catheter for better angiographic evaluation of the LAD. There was an angiographically indeterminate stenosis therefore therapeutic heparin was administered followed by a Choice PT extra-support wire being placed distally down the LAD. A nevus FFR catheter was then equalized and advanced and adenosine was infused. The first run had technical difficulties in which equalization was not consistent before and after the procedure. Because of this the procedure was repeated per protocol this time producing an FFR index of 0.78. At this point a 3.5 x 12 mm resolute Irwin stent was placed in the proximal to mid LAD crossing a large first diagonal artery and deployed at 12 bryan. Additional disease was present distally therefore a 3.5 x 15 mm resolute Hadley stent was placed distal to the first stent yet still overlapping it and deployed at 12 bryan. This produced excellent angiographic results therefore the apparatus was removed the sheath was removed and hemostasis was achieved and TR banding patient was transferred to the postop already in stable condition. DWIGHT-3 flow was present before and after the procedure ANGIOGRAPHIC RESULTS The left main artery Has mild mid vessel 10% atheromatous plaque The left anterior descending artery Has proximal 10% luminal irregularities followed by an eccentric 50 to 60% stenosis between the large first septal ship manager and a moderate-sized first diagonal artery. There is additional 30 to 40% stenosis distal to the first diagonal artery. The circumflex artery Gives rise to a moderate sized ramus which has a proximal concentric 70 to 80% stenosis. The circumflex artery itself has mild 10% atheromatous plaque The right coronary artery Is a dominant vessel and has proximal to mid vessel 20 to 30% stenoses The IBRAHIM ventriculogram reveals Normal 65% The left ventricular end-diastolic pressure 10 mmHg IMPRESSION Abnormal Myoview with anterior ischemia accompanied by angiographically indeterminate stenosis which produced an FFR index of 0.78 which is a severe hemodynamic stenosis Successful stenting the proximal to mid LAD hemodynamically severe disease reduced to 0% with 2 contiguous drug-eluting stents Persistent moderate to severe disease and a moderate sized ramus intermedius Normal ejection fraction Normal left ventricular end-diastolic pressure PLAN 1. Dual antiplatelet therapy 2. Medical management for the ramus intermedius. 3. LDL less than 55 to be achieved with high intensity statin 4. Postponement of elective surgery 5. Cardiac rehabilitation 6. Avoidance of tobacco products 7. Risk factor modification Electronically
[2021-06-05 08:46] LABS: Basophils # 0.1 K/mm3 (0-0.2); Basophils % 1.7 % (0.1-2.0); Chloride 105 mmol/L (98-107); Eosinophils # 0.1 K/mm3 (0.0-0.4); Eosinophils % 1.4 % (0.1-12.0); Hematocrit 46.1 % (42.0-52.0); Hemoglobin 15.8 g/dL (14.1-18.0); Lymphocytes # 1.5 K/mm3 (0.7-4.5); Lymphocytes % 21.4 % (10-50); Mean Corpuscular HGB Conc 34.3 g/dL (31.8-35.4); Mean Corpuscular Hemoglobin 31.2 pg (27.0-31.2); Mean Corpuscular Volume 91.1 fl (80-94); Mean Platelet Volume 7.9 fl (7.4-10.4); Monocytes # 0.6 K/mm3 (0.1-1.0); Monocytes % 8.4 % (1.7-9.3); Neutrophils # 4.6 K/mm3 (1.8-7.8); Neutrophils % 67.1 % (37.0-80.0); Platelet Count 276 K/mm3 (142-424); Red Blood Count 5.06 M/mm3 (4.60-6.20); Sodium 136 mmol/L (136-145); White Blood Count 6.8 K/mm3 (4.8-10.8)
[2021-06-05 08:47] LABS: Potassium 3.8 mmoL/L (3.5-5.1)
[2021-06-05 08:49] LABS: Alanine Aminotransferase 34 U/L (12-78); Albumin Level 4.4 g/dl (3.5-5.0); Albumin/Globulin Ratio 1.6 (1.1-1.8); Alkaline Phosphatase 87 U/L (38-126); Anion Gap 12.8 mEq/L (5-15); Aspartate Amino Transferase 32 U/L (17-59); Bilirubin,Total 0.6 mg/dl (0.2-1.3); Blood Urea Nitrogen 15 mg/dl (9-20); Calcium 8.9 mg/dl (8.4-10.2); Carbon Dioxide 22 mmol/L (22.0-30.0); Creatinine Clearance Estimated 130 mL/min (50-200); Estimated Glomerular Filt Rate 78 ml/min (>60); GFR (African American) 95 ML/MIN (>60); Globulin 2.8 g/dL (1.3-3.2); Glucose 125 mg/dl (74-100); Total Protein,Serum 7.2 g/dl (6.3-8.2)
[2021-06-05 10:01] LABS: CATHL Activated Clotting Time > 400 SEC (74-125)
--- NOTE | 2021-06-05 12:59 | HMH.PHACLD ---
Deion Ernst has received discharge medication counseling on the following medications: PATIENT IS CURRENTLY TAKING CARVEDILOL 6.25 MG BID, LOSARTAN-HCTZ 100 MG/25 MG DAILY, ATORVASTATIN 40 MG HS, AND ASPIRIN 81 MG DAILY. MD ADDING BRINLINTA 90 MG BID.
== END 2021-06-05 14:15 | disposition home or self-care (01) ==
LOC: CATHLAB 07:56
PROVIDERS: PCP Nurse Practitioner Family; Visit Provider Internal Medicine
DX: I25.118 Atherosclerotic heart disease of native coronary artery with other forms of angina pectoris (principal); R94.31 Abnormal electrocardiogram [ECG] [EKG]; R07.9 Chest pain, unspecified; Z79.899 Other long term (current) drug therapy; I11.9 Hypertensive heart disease without heart failure; F17.210 Nicotine dependence, cigarettes, uncomplicated; K21.9 Gastro-esophageal reflux disease without esophagitis; Z82.49 Family history of ischemic heart disease and other diseases of the circulatory system
CPT/HCPCS: 80053; 85025; 85347; 92928; 93458; 93571; 99152; 99153; C1725; C1760; C1769; C1874; C1876; C9600; J0153; J1644; Q9967

== ENCOUNTER → 2022-01-26 09:53 | Outpatient (CLI) | payer OTHER, SELFPAY ==
--- NOTE | 2022-01-26 10:02 | ECG_ITS ---
APPROVED REPORT Exam: Resting ECG HR:60 bpm ECG Measurements Heart Rate 60 AXES SC 201 P 45 QRSd 102 QRS 69 QT 383 T 34 QTc 385 Conclusion SINUS RHYTHM NORMAL ECG UNCONFIRMED REPORT Electronically signed by : Don Garsia MD 01/26/2022 19:43:06
[2022-01-26 10:05] LABS: Microscopic, Urine URINE MICROSCOPIC (MICROSCOPIC)
--- NOTE | 2022-01-26 10:19 | XR_ITS ---
FINAL REPORT CLINICAL HISTORY: preop, smoker COMPARISON: 11/07/2018 FINDINGS: Two views of the chest were obtained. The heart size and pulmonary vascularity are within normal limits. The mediastinum is normal. No acute pulmonary abnormality is identified. There is no pneumothorax. The bony thorax is intact. IMPRESSION: No active cardiopulmonary disease. Reviewed, Interpreted and Dictated by Kimo Bustamante III, MD Transcribed by Lissy Saenz Authenticated and [facility]
[2022-01-26 10:30] LABS: Appearance,Urine CLEAR (Clear); Bilirubin,Urine Negative (Negative); Blood, Urine 1+ (Negative); Color,Urine YELLOW (Yellow); Glucose,Urine (UA) Negative (Negative); Ketones,Urine Negative (Negative); Leukocyte Esterase,Urine Negative (Negative); Nitrate,Urine Negative (Negative); Protein,Urine Negative (Negative); Urobilinogen,Urine 0.2 EU/dl (0.2)
[2022-01-26 10:33] LABS: Basophils # 0.1 K/mm3 (0-0.2); Basophils % 1.2 % (0.1-2.0); Eosinophils # 0.1 K/mm3 (0.0-0.4); Eosinophils % 1.7 % (0.1-12.0); Hematocrit 45.4 % (42.0-52.0); Hemoglobin 15.2 g/dL (14.1-18.0); Lymphocytes # 1.8 K/mm3 (0.7-4.5); Lymphocytes % 23.5 % (10-50); Mean Corpuscular HGB Conc 33.4 g/dL (31.8-35.4); Mean Corpuscular Hemoglobin 30.6 pg (27.0-31.2); Mean Corpuscular Volume 91.5 fl (80-94); Mean Platelet Volume 7.6 fl (7.4-10.4); Monocytes # 0.6 K/mm3 (0.1-1.0); Monocytes % 7.7 % (1.7-9.3); Neutrophils # 5.2 K/mm3 (1.8-7.8); Platelet Count 293 K/mm3 (142-424); Red Blood Count 4.96 M/mm3 (4.60-6.20); Red Cell Distribution Width 13.7 % (11.5-17.5); White Blood Count 7.8 K/mm3 (4.8-10.8)
[2022-01-26 10:46] LABS: Bacteria,Urine Trace /lpf
[2022-01-26 11:38] LABS: Chloride 97 mmol/L (98-107); Potassium 4.6 mmoL/L (3.5-5.1); Sodium 140 mmol/L (136-145)
[2022-01-26 11:40] LABS: Blood Urea Nitrogen 13 mg/dl (9-20); Estimated Glomerular Filt Rate 70 ml/min (>60); GFR (African American) 85 ML/MIN (>60)
[2022-01-26 11:41] LABS: Alanine Aminotransferase 29 U/L (12-78); Albumin Level 4.6 g/dl (3.5-5.0); Albumin/Globulin Ratio 1.9 (1.1-1.8); Alkaline Phosphatase 89 U/L (38-126); Anion Gap 14.6 mEq/L (5-15); Aspartate Amino Transferase 28 U/L (17-59); Bilirubin,Total 0.4 mg/dl (0.2-1.3); Calcium 10.1 mg/dl (8.4-10.2); Carbon Dioxide 33 mmol/L (22.0-30.0); Globulin 2.4 g/dL (1.3-3.2); Glucose 76 mg/dl (74-100)
== END ==
PROVIDERS: Visit Provider Orthopaedic Surgery
DX: Z01.818 Encounter for other preprocedural examination (principal); M25.512 Pain in left shoulder
CPT/HCPCS: 36415; 71046; 80053; 81001; 85025; 93005

== ENCOUNTER 2022-02-02 09:12 | Day surgery (SDC) | payer OTHER, SELFPAY ==
[2022-01-27 13:22] VITALS: BMI 36.0
[2022-02-02] VITALS (10 sets, daily range): BP systolic 92–121; BP diastolic 47–80; PULSE 60–75; RESP 12–18; TEMP 36.3–36.4; O2SAT 94–98
--- NOTE | 2022-02-02 10:30 | P.PN_ITS ---
[facility] Medical History (Updated 02/02/22 @ 09:45 by Silvina Madrid RN) Allergies History of COVID-19 Hyperlipidemia Hypertension Surgical History History of cholecystectomy History of coronary artery stent placement History of hand surgery Family History Other Family history of stroke Social History (Updated 02/02/22 @ 09:45 by Silvina Madrid, RN) Smoking Status: Current every day smoker tobacco type: cigarettes packs per day: 1 years smoked: 35 alcohol intake: current substance use type: denies use current occupational status: employed Travel in the last 8 weeks: None household members: spouse housing: house caffeine: Yes [facility] Anesthesia Checklist Patient Identification Patient Identification: Arm Band Structural Data Admitted From: Home Planned Operative Procedure/s: Right Shoulder Arthroscopy, RCR, SLAP repair Consent for Planned Operative Procedure(s) Verified: Yes Verified Documents: Surgical Consent and History and Physical NPO Status Verified Time NPO: 00:00 Additional verifications Anesthesia Reactions: No Hx Blood Transfusions: No Blood Transfusion Reaction: No Airway Assessment C-Spine Mobility Assessed: Yes TMJ Mobility Assessed: Yes Dentition: Edentulous Neurological Assessment Level of Consciousness: Awake and Alert Anesthesia Plan Anesthesia Plan: Verified ASA Class: III Anesthesia Type: General w/block (Left Interscalene Nerve Block)
--- NOTE | 2022-02-02 12:44 | P.OP_ITS ---
Date of procedure: 02/02/22 Pre-op Diagnosis:: 1. Left shoulder SLAP tear #2 left shoulder rotator cuff tear full-thickness supraspinatus Post-op Diagnosis:: Same Procedure performed:: 1. Left shoulder arthroscopy with SLAP repair 2 Left shoulder arthroscopy with rotator cuff repair Surgeon:: William Gastelum DO Radio Repairer(s):: Mak PAZ FERTILIZER APPLICATOR:: Wallace Hinson Anesthesia: GETA and regional Estimated blood loss (mL): 0 Operative findings:: Unstable SLAP tear and full-thickness rotator cuff tear Operative note:: Patient was identified preoperatively. Left shoulder marked yes my initials. Underwent a block with anesthesia. Transferred operative suite. Placed upon the operating bed. General anesthesia was ministered airway secured. Then placed in a lateral position with a beanbag and all bony prominences well- padded. Left upper extremity was then prepped and draped in normal sterile fashion. Once prepped and draped final operative timeout performed to identify proper patient procedure and extremity everyone involved in the case agreed there were no counter indications to beginning did receive preoperative antibiotics. Marking pen was used to enmanuel bony landmarks of the shoulder and standard portal sites. Skin F was used and sized posterior viewing portal and blunt with trocar was placed in the glenohumeral joint. This was exchanged with a camera. Move directly anteriorly just above the subscapularis tendon where the anterior working portal was made and switch with a purple cannula. Attention was then brought to the anterior and superior labrum. There was evidence of an unstable SLAP tear some fraying at the base of the biceps with the biceps tendon was intact. Upon probing the superior aspect of the labrum was unstable and torn fr om the glenoid. Attention was then taken to repair of the SLAP lesion. Rasp was used to roughen the glenoid rim. Suture passer was used to pass suture through the tissue and push lock anchor was placed anteriorly to the biceps tendon. This procedure was repeated with another anchor placed into the biceps tendon. An additional push lock anchor was placed posterior to the biceps tendon. This gave good repair of the SLAP lesion which was probed and found to be stable. The fraying at the base of biceps tendon was lightly debrided and evaluated and the biceps tendon was intact enough not to perform biceps tenodesis or tenolysis. The undersurface of the rotator cuff and the articular surface was with evidence of tearing debridement of the with a sucker shaver was performed. Tensions then brought the subacromial space. Bursectomy was completed for visualization. After bursectomy there is evidence of full-thickness small tearing of the supraspinatus footprint. Lateral portal was established. Passport cannula was placed. Attention was brought to repair the rotator cuff. Using a speed fix method with Arthrex fiber tape fiber tape was placed through the rotator cuff and brought into a medial anchor for good repair of the rotator cuff. This was viewed in the lateral portal and found to give good repair of the rotator cuff. With both repairs completed the camera was removed the joint was drained skin was closed with nylon stitch sterile dressing placed Medipore tape placed patient placed in a pillow and sling taken recovery in stable condition. Condition: stable Disposition: PACU Complications:: None apparent
--- NOTE | 2022-02-02 12:50 | EXP.ANES.I ---
[facility] Anesthesia Record Part I Anesthesia Record I Intake, IV Amount: 1,000 Estimated blood loss (mL): 5 Urine output (mL): 0 Blood Products used (#): none Blood Pressure: 97/47 SaO2: 96 Pulse Rate: 60 Respiratory Rate: 12 Temperature: 97.5 F Patient is:: Drowsy and Stable Stable to PACU at:: 12:45
--- NOTE | 2022-02-02 13:41 | EXP.ANES.II ---
[facility] Anesthesia Record Part II Anesthesia Record Part II Discharge Time: 13:15 Destination: Surgical Day Care (OP Surgery) PACU nurse assessment reviewed?: Yes Patient Condition:: Good Anesthesia Complications:: None Swallowing reflex intact?: Yes Cyanosis?: No Blood Pressure: 107/68 Pulse Rate: 64 Temperature: 97.6 F Mental Status: Alert & Oriented Pain level:: 0 Nausea and/or vomitting:: None Intake, IV Amount: 0
== END 2022-02-02 13:46 | disposition home or self-care (01) ==
PROVIDERS: Visit Provider Orthopaedic Surgery
PROC: (CPT 29805; principal; 2022-02-02 10:45)
DX: S46.012A Strain of muscle(s) and tendon(s) of the rotator cuff of left shoulder, initial encounter (principal); S43.432A Superior glenoid labrum lesion of left shoulder, initial encounter; X50.0XXA Overexertion from strenuous movement or load, initial encounter; Y99.0 Civilian activity done for income or pay; Y92.69 Other specified industrial and construction area as the place of occurrence of the external cause
CPT/HCPCS: 29827; 29807; 96374; C1713; J2405

== ENCOUNTER → 2022-05-11 12:38 | Outpatient (CLI) | payer BC, SELFPAY ==
--- NOTE | 2022-05-11 12:38 | CA_ITS ---
FINAL REPORT TECHNIQUE: Color Doppler, duplex Doppler and clinton scale sonography of the bilateral neck arterial vasculature was performed. Velocities were measured in the carotid arteries. Stenosis evaluation based on the validated velocity criteria. CLINICAL HISTORY: CAD,dizziness,htn,smoker FINDINGS: The peak systolic velocity of the right common carotid artery is 80 cm/s. The peak systolic velocity of the right internal carotid artery is 75 cm/s and end diastolic velocity 33 cm/s. A small amount of plaque is present. The right external carotid artery is patent. The right vertebral artery is patent with antegrade flow. The peak systolic velocity of the left common carotid artery is 89 cm/s. The peak systolic velocity of the left internal carotid artery is 77 cm/s and end diastolic velocity 22 cm/s. A small amount of plaque is present. The left external carotid artery is patent.The left vertebral artery is patent with antegrade flow. IMPRESSION: Less than 50% bilateral carotid stenoses. Bilateral patent vertebral arteries with antegrade flow. If indicated, CTA or MRA could further evaluate. Reviewed, Interpreted and Dictated by Kimo Bustamante III, MD Transcribed by Chandni Dumont Authenticated and [facility]
== END ==
LOC: RT 12:38
PROVIDERS: PCP Nurse Practitioner Family; Visit Provider Physician Assistant
DX: R06.00 Dyspnea, unspecified (principal); I25.10 Atherosclerotic heart disease of native coronary artery without angina pectoris; I11.9 Hypertensive heart disease without heart failure; E78.2 Mixed hyperlipidemia; E66.9 Obesity, unspecified; Z68.36 Body mass index [BMI] 36.0-36.9, adult; Z72.0 Tobacco use
CPT/HCPCS: 93880

== ENCOUNTER → 2022-05-12 07:52 | Outpatient (CLI) | payer BC, SELFPAY ==
[2022-05-12 09:24] LABS: Alanine Aminotransferase 31 U/L (12-78); Albumin Level 4.5 g/dl (3.5-5.0); Alkaline Phosphatase 88 U/L (38-126); Aspartate Amino Transferase 26 U/L (17-59); Bilirubin,Direct 0.2 mg/dl (0.0-0.4); Bilirubin,Indirect 0.2 mg/dL (0.0-0.9); Bilirubin,Total 0.4 mg/dl (0.2-1.3); Bilirubin,Unconjugated 0.1 mg/dL (0.0-1.1); Cholesterol 140 mg/dl (140-200); HDL Cholesterol 35 mg/dl (40-60); Total Protein,Serum 6.7 g/dl (6.3-8.2); Triglycerides 150 mg/dl (30-150); VLDL Cholesterol 30 mg/dL (0-40)
[2022-05-12 09:35] LABS: Direct LDL Cholesterol 92.66 mg/dL (100-129)
== END ==
PROVIDERS: PCP Nurse Practitioner Family; Visit Provider Physician Assistant
DX: I11.9 Hypertensive heart disease without heart failure (principal); E11.9 Type 2 diabetes mellitus without complications
CPT/HCPCS: 36415; 80061; 80076

== ENCOUNTER → 2022-07-06 08:51 | Outpatient (CLI) | payer OTHER, SELFPAY ==
--- NOTE | 2022-07-06 08:51 | MR_ITS ---
FINAL REPORT CLINICAL HISTORY: shoulder pain. WEAKNESS. LIMITED ROM. UNABLE TO SUPINATE HAND FINDINGS: Multi planar MR imaging of the left shoulder was performed after the intra-articular injection of dilute gadolinium contrast. Contrast is seen throughout the shoulder joint space. There has been interval surgery. There are orthopedic anchors in the greater tuberosity of the humerus. There is a defect in the supraspinatus tendon. This defect results in marked thinning of the distal supraspinatus tendon consistent with a large, articular surface tear of the supraspinatus tendon. There is no definite full-thickness component. The subscapularis tendon is intact. There is no abnormal communication between the joint space and the subacromial/subdeltoid bursa. On the axial images, there is irregularity of the anterior labrum probably due to a chronic anterior labral tear. The biceps tendon appears intact. The acromioclavicular joint is intact. IMPRESSION: Interval surgical repair of the distal supraspinatus tendon with a large articular surface tear of the supraspinatus tendon. No definite full-thickness tear is identified. Irregularity of the anterior labrum probably related to an anterior labral tear. Reviewed, Interpreted and Dictated by Clifton Dorsey MD Transcribed by Chandni Dumont Authenticated and [facility]
--- NOTE | 2022-07-06 09:04 | IR_ITS ---
FINAL REPORT CLINICAL HISTORY: shoulder pain, surgery january 2022 1:07 fluoro time FINDINGS: LEFT SHOULDER INJECTION FOR MRI ARTHROGRAM HISTORY: Left shoulder pain. PROCEDURE: After informed consent was obtained, a time-out was performed. Utilizing local anesthesia and sterile technique, with direct fluoroscopic guidance, access to the joint was obtained . A small amount of contrast was injected to confirm needle tip location. Additional gadolinium contrast was injected. IMPRESSION: Status post injection for MRI arthrogram without immediate complication. Please see MRI report. FLUOROSCOPY TIME: 1 minute 7 seconds. 2 radiographs were obtained. Films reviewed , interpreted and dictated by Dr. Dorsey. Transcribed by Manoj Manzo PA-C. Reviewed, Interpreted and Dictated by Clifton Dorsey MD Transcribed by CLAUDIA Mojica Authenticated and [facility]
== END ==
PROVIDERS: PCP Nurse Practitioner Family; Visit Provider Orthopaedic Surgery
DX: M25.512 Pain in left shoulder (principal); Z98.890 Other specified postprocedural states
CPT/HCPCS: 73040; 73222; A9576; Q9967

== ENCOUNTER → 2022-07-27 08:04 | Outpatient (CLI) | payer BC, SELFPAY ==
[2022-07-27 08:35] VITALS: PULSE 77; PULSE 80
== END ==
LOC: RT 08:05
PROVIDERS: PCP Nurse Practitioner Family; Visit Provider Nurse Practitioner Family
DX: R06.02 Shortness of breath (principal)
CPT/HCPCS: 94060; 94640; 94727; 94729

== ENCOUNTER → 2022-08-05 08:06 | Outpatient (CLI) | payer BC, SELFPAY ==
--- NOTE | 2022-08-05 08:07 | FL_ITS ---
FINAL REPORT CLINICAL HISTORY: dysphagia FINDINGS: ESOPHAGRAM HISTORY: Acute epigastric pain. PROCEDURE: The patient ingested barium. Effervescent crystals were also administered. Spot films were obtained. Fluoroscopy time: 1 minute 34 seconds. 17 radiographs were obtained. FINDINGS: The esophagus is normal. There is no hiatal hernia. There is no gastroesophageal reflux. Peristalsis is normal. A 13 mm barium tablet passes through the esophagus and into the stomach without delay. IMPRESSION: Normal esophagram. Films reviewed , interpreted and dictated by Dr. Dorsey. Transcribed by Manoj Manzo PA-C. Reviewed, Interpreted and Dictated by Clifton Dorsey MD Transcribed by CLAUDIA Mojica Authenticated and [facility]
== END ==
LOC: RAD 08:07
PROVIDERS: PCP Nurse Practitioner Family; Visit Provider Nurse Practitioner Family
DX: R13.10 Dysphagia, unspecified (principal)
CPT/HCPCS: 74220

== ENCOUNTER → 2022-08-26 10:12 | Outpatient (CLI) | payer OTHER, SELFPAY ==
--- NOTE | 2022-08-26 10:31 | XR_ITS ---
FINAL REPORT CLINICAL HISTORY: pre op testing, smoker COMPARISON: 01/26/2022 FINDINGS: TWO VIEW CHEST The heart size is normal. The mediasinum is normal. The lungs are clear. There is no pneumothorax. IMPRESSION: No acute cardiopulmonary process. Reviewed, Interpreted and Dictated by Clifton Dorsey MD Transcribed by Derek Page Authenticated and [facility]
[2022-08-26 10:48] LABS: Basophils # 0.1 K/mm3 (0-0.2); Basophils % 0.7 % (0.1-2.0); Eosinophils # 0.1 K/mm3 (0.0-0.4); Eosinophils % 1.8 % (0.1-12.0); Hematocrit 45.4 % (42.0-52.0); Hemoglobin 15.7 g/dL (14.1-18.0); Lymphocytes # 1.9 K/mm3 (0.7-4.5); Lymphocytes % 25.3 % (10-50); Mean Corpuscular HGB Conc 34.6 g/dL (31.8-35.4); Mean Corpuscular Hemoglobin 30.3 pg (27.0-31.2); Mean Corpuscular Volume 87.5 fl (80-94); Mean Platelet Volume 7.7 fl (7.4-10.4); Monocytes # 0.5 K/mm3 (0.1-1.0); Monocytes % 6.3 % (1.7-9.3); Neutrophils # 4.9 K/mm3 (1.8-7.8); Neutrophils % 65.9 % (37.0-80.0); Platelet Count 252 K/mm3 (142-424); Red Blood Count 5.19 M/mm3 (4.60-6.20); Red Cell Distribution Width 13.6 % (11.5-17.5); White Blood Count 7.5 K/mm3 (4.8-10.8)
[2022-08-26 11:07] LABS: Chloride 99 mmol/L (98-107); Potassium 3.6 mmoL/L (3.5-5.1); Sodium 137 mmol/L (136-145)
[2022-08-26 11:10] LABS: Alanine Aminotransferase 31 U/L (12-78); Albumin Level 4.4 g/dl (3.5-5.0); Albumin/Globulin Ratio 1.7 (1.1-1.8); Alkaline Phosphatase 85 U/L (38-126); Anion Gap 14.6 mEq/L (5-15); Aspartate Amino Transferase 27 U/L (17-59); Bilirubin,Total 0.5 mg/dl (0.2-1.3); Blood Urea Nitrogen 11 mg/dl (9-20); Calcium 9.7 mg/dl (8.4-10.2); Carbon Dioxide 27 mmol/L (22.0-30.0); Estimated Glomerular Filt Rate 78 ml/min (>60); GFR (African American) 95 ML/MIN (>60); Globulin 2.6 g/dL (1.3-3.2); Glucose 126 mg/dl (74-100)
== END ==
PROVIDERS: PCP Nurse Practitioner Family; Visit Provider Orthopaedic Surgery
DX: Z01.818 Encounter for other preprocedural examination (principal); M25.512 Pain in left shoulder; M75.102 Unspecified rotator cuff tear or rupture of left shoulder, not specified as traumatic
CPT/HCPCS: 36415; 71046; 80053; 85025

== ENCOUNTER 2022-08-31 08:08 | Day surgery (SDC) | payer OTHER, SELFPAY ==
[2022-08-27 10:00] VITALS: BMI 36.3
[2022-08-31] VITALS (10 sets, daily range): BP systolic 145–198; BP diastolic 86–111; PULSE 61–81; RESP 12–18; TEMP 36.1–36.5; O2SAT 93–100
--- NOTE | 2022-08-31 13:15 | P.PN_ITS ---
[facility] Disclaimer: The information contained in this section may have been updated after the patient was seen, as this information can be updated by other users. Medical History Allergies History of COVID-19 Hyperlipidemia Hypertension Surgical History History of cholecystectomy History of coronary artery stent placement History of hand surgery Status post shoulder surgery 1. Left shoulder arthroscopy with SLAP repair 2 Left shoulder arthroscopy with rotator cuff repair Family History Other Family history of stroke Social History (Updated 08/31/22 @ 08:31 by Silvina Madrid RN) Smoking Status: Current every day smoker tobacco type: cigarettes packs per day: 1 years smoked: 35 alcohol intake: current substance use type: denies use current occupational status: employed Travel in the last 8 weeks: None household members: spouse housing: house caffeine: Yes [facility] Anesthesia Checklist Patient Identification Patient Identification: Verbal (Name & ) Structural Data Admitted From: Home Planned Operative Procedure/s: l shoulder rotator cuff repair Consent for Planned Operative Procedure(s) Verified: Yes NPO Status Verified Time NPO: 00:00 Additional verifications Anesthesia Reactions: No Hx Blood Transfusions: No Blood Transfusion Reaction: No Airway Assessment C-Spine Mobility Assessed: Yes TMJ Mobility Assessed: Yes Dentition: Edentulous Neurological Assessment Level of Consciousness: Awake, Alert and Appropriate Anesthesia Plan Anesthesia Risk discussed: Yes Anesthesia Plan: Verified ASA Class: III Anesthesia Type: General w/block
--- NOTE | 2022-08-31 13:17 | EXP.ANES.I ---
[facility] Anest[facility] Record Part I Anesthesia Record I Intake, IV Amount: 1,600 Estimated blood loss (mL): 0 Urine output (mL): 0 Blood Pressure: 150/86 SaO2: 95 Pulse Rate: 64 Respiratory Rate: 12 Temperature: 97.7 F Patient is:: Awake and Stable Stable to PACU at:: 13:15
--- NOTE | 2022-08-31 14:11 | SUR.PHASEI ---
1315- [employer] RECOR[employer] CLERK AT BEDSIDE AND MADE AWARE OF PATIENTS VITAL SIGNS. PATIENT STATED, MY BLOOD PRESSURE ALWAYS RUNS PRETTY HIGH. NNO GIVEN BY [employer] RECORDS CLERK. REPORT GIVEN TO POST OP NURSE AND MADE AWARE OF HYPERTENSION. PATIENT RECEIVED 2MG OF MORPHINE AT 1339 D/T LEFT SHOULDER PAIN.
--- NOTE | 2022-08-31 15:13 | EXP.OP.NOTE ---
Date of procedure: 08/31/22 Pre-op Diagnosis:: Left shoulder re-tear rotator cuff Post-op Diagnosis:: Same Procedure performed:: Left shoulder arthroscopy with revision rotator cuff repair Surgeon:: William Gastelum DO INJECTION PRESS OPERATOR:: Ketan Campbell Anesthesia: GETA and local Estimated blood loss (mL): 0 Operative findings:: Retear supraspinatus tendon intact SLAP lesion repair Operative note:: Patient was identified preoperatively. Left shoulder marked with yes and my initials. Underwent a block with anesthesia. Taken to the operating room. Placed upon the operating bed. General anesthesia ministered airway secured. Then placed in a lateral position with a beanbag with all bony prominences well-padded. Axillary roll placed. Left arm was placed inline traction with the arm sotomayor. Left upper extremity was then prepped and draped in normal sterile fashion. Once prepped and draped final operative timeout performed to identify proper patient procedure and extremity. Everyone involved in the case agreed. There is no counter indications to beginning. Did receive preoperative antibiotics. Marking pen was used to enmanuel the bony landmarks of the shoulder and standard portal sites. Skin knife was used to incise standard posterior viewing portal and blunt with trocar was placed in the glenohumeral joint. This was exchanged with a camera and diagnostic arthroscopy began. I moved just anteriorly above the subscapularis tendon where the anterior working portal was made switching stick was placed and a purple working cannula was placed over it. Intra-articular examination of the shoulder was performed. The SLAP lesion was intact. There is evidence of articular surface fraying and tearing of the undersurface of the rotator cuff tendon. This was debrided and marked with a Prolene suture for visualization within the subacromial space. Attention was then brought into the subacromial space the cannula was removed and placed in the subacromial space and anterior working portal was redirected into the anterior subacromial space. Lateral working portal was made and passport cannula was placed. Debridement of the footprint was performed and debridement of scar tissue was performed which showed evidence of full-thickness tearing of the supraspinatus tendon. Footprint was debrided with a shaver. The ends of the rotator cuff debrided as well to healthy tissue. And then using Arthrex speed fix technique anchor was placed in the medial row with fiber tape to secure rotator cuff tear. This gave good secure fixation to the footprint. Pictures were taken. Camera was removed. Joint was drained. Skin was closed with nylon stitches. Sterile dressing was placed with tape. Patient placed in a sling and pillow taken recovery in stable condition. Condition: stable Disposition: PACU Complications:: None apparent
[2022-09-07 07:41] VITALS: BP 179/105; PULSE 61; TEMP 36.5
--- NOTE | 2022-09-07 07:41 | P.PNANES_ITS ---
[facility] Anesthesia Record Part II Anesthesia Record Part II Discharge Time: 13:45 Destination: Surgical Day Care (OP Surgery) PACU nurse assessment reviewed?: Yes Patient Condition:: Good Anesthesia Complications:: None Swallowing reflex intact?: Yes Cyanosis?: No Blood Pressure: 179/105 Pulse Rate: 61 Temperature: 97.7 F Mental Status: Alert & Oriented Pain level:: 6 Nausea and/or vomitting:: None Intake, IV Amount: 0
== END 2022-08-31 15:20 | disposition home or self-care (01) ==
PROVIDERS: PCP Nurse Practitioner Family; Visit Provider Orthopaedic Surgery
PROC: (CPT 29805; principal; 2022-08-31 09:45)
DX: M75.122 Complete rotator cuff tear or rupture of left shoulder, not specified as traumatic (principal); I10 Essential (primary) hypertension; E78.5 Hyperlipidemia, unspecified; Z79.899 Other long term (current) drug therapy; Z95.5 Presence of coronary angioplasty implant and graft; Z79.01 Long term (current) use of anticoagulants; Z86.16 Personal history of COVID-19; F17.210 Nicotine dependence, cigarettes, uncomplicated
CPT/HCPCS: 29827; 96374; C1713; J2405

== ENCOUNTER → 2022-11-20 07:00 | Outpatient (CLI) | payer BC, SELFPAY ==
[2022-11-20 13:32] LABS: Basophils # 0.1 K/mm3 (0-0.2); Basophils % 0.6 % (0.1-2.0); Eosinophils # 0.2 K/mm3 (0.0-0.4); Eosinophils % 1.9 % (0.1-12.0); Hematocrit 47.8 % (42.0-52.0); Hemoglobin 15.9 g/dL (14.1-18.0); Lymphocytes # 2.2 K/mm3 (0.7-4.5); Lymphocytes % 26.4 % (10-50); Mean Corpuscular HGB Conc 33.3 g/dL (31.8-35.4); Mean Corpuscular Hemoglobin 30.2 pg (27.0-31.2); Mean Corpuscular Volume 90.7 fl (80-94); Mean Platelet Volume 8.4 fl (7.4-10.4); Monocytes # 0.7 K/mm3 (0.1-1.0); Neutrophils # 5.4 K/mm3 (1.8-7.8); Neutrophils % 63.1 % (37.0-80.0); Platelet Count 281 K/mm3 (142-424); Red Blood Count 5.27 M/mm3 (4.60-6.20); Red Cell Distribution Width 13.4 % (11.5-17.5); White Blood Count 8.5 K/mm3 (4.8-10.8)
[2022-11-20 13:36] LABS: Alanine Aminotransferase 38 U/L (12-78); Albumin Level 4.5 g/dl (3.5-5.0); Albumin/Globulin Ratio 1.7 (1.1-1.8); Alkaline Phosphatase 117 U/L (38-126); Aspartate Amino Transferase 39 U/L (17-59); Bilirubin,Total 0.4 mg/dl (0.2-1.3); Blood Urea Nitrogen 14 mg/dl (9-20); Calcium 9.5 mg/dl (8.4-10.2); Carbon Dioxide 21 mmol/L (22.0-30.0); Chloride 104 mmol/L (98-107); Cholesterol 130 mg/dl (140-200); Estimated Glomerular Filt Rate 88 ml/min (>60); GFR (African American) 106 ML/MIN (>60); Globulin 2.7 g/dL (1.3-3.2); Glucose 114 mg/dl (74-100); HDL Cholesterol 26 mg/dl (40-60); Sodium 138 mmol/L (136-145); Total Protein,Serum 7.2 g/dl (6.3-8.2); Triglycerides 89 mg/dl (30-150); VLDL Cholesterol 18 mg/dL (0-40)
[2022-11-20 13:47] LABS: Direct LDL Cholesterol 90.26 mg/dL (100-129)
[2022-11-20 13:54] LABS: T4 (Thyroxine) 7.7 ug/dl (5.53-11.0)
[2022-11-20 14:07] LABS: Prostate Specific Ag Screen 0.6 ng/ml (0.0-4.0); Thyroid Stimulating Hormone 3.28 uIU/mL (0.465-4.68)
[2022-11-20 15:23] LABS: Hemoglobin A1C 5.6 % (4.0-6.0)
== END ==
PROVIDERS: PCP Nurse Practitioner Family; Visit Provider Nurse Practitioner Family
DX: E78.5 Hyperlipidemia, unspecified (principal); R31.9 Hematuria, unspecified; E66.9 Obesity, unspecified; Z68.30 Body mass index [BMI] 30.0-30.9, adult; Z79.899 Other long term (current) drug therapy; Z12.5 Encounter for screening for malignant neoplasm of prostate
CPT/HCPCS: 80053; 80061; 82306; 83036; 84436; 84443; 85025; 87086; G0103

== ENCOUNTER 2023-11-22 12:12 | Day surgery (SDC) | payer MEDICAID, SELFPAY ==
[2023-11-18 15:02] VITALS: BMI 33.8
[2023-11-22] MEDS: LACTATED RINGERS 1000ML 1,000 ML 25 ML IV (12:29)
--- NOTE | 2023-11-22 12:32 | EXP.ANES.CKL ---
[facility] Disclaimer: The information contained in this section may have been updated after the patient was seen, as this information can be updated by other users. Medical History Tobacco user Left shoulder pain Complete rotator cuff tear of left shoulder SLAP lesion of left shoulder Abnormal cardiovascular stress test Atypical angina Erectile dysfunction Obesity (BMI 30-39.9) Chest pain Hypertension Laceration of right hand Fracture of fifth metacarpal bone Degloving injury of right hand Crush injury of hand Dyspnea Hyperlipidemia Coronary arteriosclerosis Hypertensive heart disease Encounter for CDL (commercial driving license) exam Shortness of breath Dysphagia History of COVID-19 Allergies Hyperlipidemia Hypertension Surgical History Status post shoulder surgery History of coronary artery stent placement History of hand surgery History of cholecystectomy Family History Other Family history of stroke Social History Smoking Status: Current every day smoker tobacco type: cigarettes packs per day: 1 years smoked: 35 alcohol intake: current alcohol intake frequency: holidays/special occasions only substance use type: denies use current occupational status: employed Travel in the last 8 weeks: None household members: spouse housing: house caffeine: Yes [facility] Anesthesia Checklist Patient Identification Patient Identification: Arm Band and Verbal (Name & ) Structural Data Admitted From: Home Planned Operative Procedure/s: EGD/Colonoscopy Consent for Planned Operative Procedure(s) Verified: Yes Verified Documents: Surgical Consent and History and Physical NPO Status Verified Time NPO: 00:00 Additional verifications Anesthesia Reactions: No Hx Blood Transfusions: No Blood Transfusion Reaction: No Airway Assessment Mallampati Score:: Class III C-Spine Mobility Assessed: Yes TMJ Mobility Assessed: Yes Dentition: Edentulous Neurological Assessment Level of Consciousness: Awake Hx Seizures: No Numbness or tingling in extremities: No Anesthesia Plan Anesthesia Risk discussed: Yes Anesthesia Plan: Verified ASA Class: II Anesthesia Type: MAC
[2023-11-22 12:33] VITALS: BP 117/69; PULSE 63; RESP 18; TEMP 36.3; O2SAT 98
[2023-11-22 13:14] VITALS: O2SAT 98
--- NOTE | 2023-11-22 13:37 | HMH.PROCNOTE ---
[facility] Procedure Note Date: 11/22/23 Time: 13:37 Procedure Note:: Upper Endoscopy Procedure Report: Esophagogastroduodenoscopy with cold biopsies and TTS balloon dilation Endoscopost: Maurice Guardado II, MD Referring Physician: JOANN Brock Date of Procedure: November 22, 2023 Equipment: Olympus GIF 190 standard upper endoscope Sedation: MAC sedation Indications: Mr. Ernst is a 53-year-old gentleman who is here for diagnostic upper endoscopy and colonoscopy. The patient does report left upper quadrant abdominal pain under the left costal margin which feels like a knot. The patient also has had a 20 pound weight loss. He does describe dysphagia to solids such as breads and large tablets. He has occasional early satiety. He reports no bloating, belching, heartburn, reflux or nausea. Procedure: Prior to the procedure, a history and physical exam was performed, and patient's medications and allergies were reviewed. The risks, benefits and alternatives of the sedation and procedure were discussed with the patient. All questions were answered and informed consent was obtained. The patient was brought to the procedure room. Patient identification and proposed procedure were verified by the physician and the nurse. The patient was placed in a left lateral decubitus position and the scope was passed under direct vision. Throughout the procedure, the patient's blood pressure, pulse, and oxygen saturations were monitored continuously. The upper GI endoscopy was accomplished without difficulty. The patient tolerated the procedure well. Findings: The scope was passed directly into the upper esophagus and advanced to the third portion of the duodenum. The post bulbar duodenum and duodenal bulb were normal with normal mucosa and conniventes. The scope was withdrawn through a normal duodenal bulb and pylorus into the stomach. There was some mild bile reflux with mild reactive gastropathy of the prepyloric antrum. The remainder of the antrum, body and fundus of the stomach were grossly normal. Upon retroflexion there was a small to medium sized 3 cm hiatal hernia. 2 biopsies were taken in the antrum and along the lesser curvature for histology to rule out gastritis and/or H pylori. The scope was then withdrawn into the esophagus. There was evidence of short segment Wan's esophagus. There were tongues of Wan's that extended. The diaphragmatic hiatus was at 40 cm. The top of the gastric folds was at 38 to 37 cm from the incisors and the Z-line/squamocolumnar junction extended maximally to 34 cm from the incisors. The Wan's would be Engelhard classification C2M3. Narrowband imaging was utilized to take selective biopsies. The entire esophagus was dilated up to 60 Lao/20 mm with a TTS hydrostatic balloon. The remainder of the esophageal mucosa was normal. Impression: 1. 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 Nonerosive GERD with moderate esophageal dysmotility and 3 cm hiatal hernia status post dilation to 20 mm 3. Mild linear reactive gastropathy and mild bile reflux Plan: I will follow-up the biopsies and discussed the findings with the patient and family. We will discuss additional treatment options for his left upper quadrant abdominal discomfort/dyspepsia. I will proceed with diagnostic colonoscopy.
--- NOTE | 2023-11-22 13:59 | P.PCN_ITS ---
[facility] Procedure Note Date: 11/22/23 Time: 14:00 Procedure Note:: Colonoscopy Procedure Report: Colonoscopy with cold snare polypectomy Endoscopist: Maurice Guardado II, MD Referring physician: JOANN Brock Date of Procedure: November 22, 2023 Equipment: Olympus 190 variable stiffness pediatric colonoscope Sedation: MAC sedation Indication: Mr. Ernst is a 53-year-old gentleman who is here for diagnostic colonoscopy. The patient has had left upper quadrant abdominal pain and a 20 pound unintentional weight loss. He does report occasional early satiety. This is his first colonoscopy. He reports no bright red rectal bleeding, change in his bowel habits or family history of colon cancer. Procedure: Prior to the procedure, a history and physical exam was performed, and patient's medications and allergies were reviewed. The risks, benefits and alternatives of the sedation and procedure were discussed with the patient. All questions were answered and informed consent was obtained. The patient was brought to the procedure room. Patient identification and proposed procedure were verified by the physician and the nurse. The patient was placed in a left lateral decubitus position and the scope was passed under direct vision. Throughout the procedure, the patient's blood pressure, pulse, and oxygen saturations were monitored continuously. The colonoscopy was accomplished without difficulty. The patient tolerated the procedure well. Findings: On digital rectal examination there was normal rectal tone. There were no external hemorrhoids. The colonoscope was introduced through the anal canal to the rectum and advanced to the cecum. The ileocecal valve and appendiceal orifice were identified. The scope was advanced a short distance into the ileum which appeared grossly normal. The scope was then withdrawn into the colon. There were 8 colon polyps identified in the transverse x 2 (5 and 5 mm), descending x 2 (4 and 6 mm), sigmoid x 3 (4, 6 and 8 mm) and rectum to sigmoid x 1 (6 mm)).. These ranged in size from 4 to 8 mm and were all removed via cold snare polypectomy. There were scattered diverticuli throughout the descending and sigmoid colon (LEFT colon). The rectum itself was normal. Upon retroflexion within the rectum there were grade 1 internal hemorrhoids.The preparation was excellent throughout with [place] Preparation Score of 9. The cecal time was 12 minutes. Impression: 1. Colonic polyps x 8 (ranging in size from 4 to 8 mm) 2. Left-sided diverticulosis 3. Grade 1 internal hemorrhoids Plan: I will follow-up the polyp histology and recommend repeat surveillance colonoscopy again in 3 years based upon the number of adenomatous polyps. I would encourage bulking fiber supplementation on a long-term daily maintenance basis. We will discuss additional diagnostic and therapeutic options for his left upper quadrant pain.
[2023-11-22 14:02] VITALS: BP 91/48; PULSE 64; RESP 16; TEMP 36.1; O2SAT 96
[2023-11-22 14:12] VITALS: BP 120/63; PULSE 63; RESP 18; O2SAT 98
[2023-11-22 14:24] VITALS: BP 116/67; PULSE 60; RESP 18; O2SAT 98
[2023-11-22 14:32] VITALS: BP 103/64; PULSE 60; RESP 18; O2SAT 99
== END 2023-11-22 14:34 | disposition home or self-care (01) ==
PROVIDERS: PCP Nurse Practitioner Family; Visit Provider Internal Medicine Gastroenterology
PROC: 0DJ08ZZ Inspection of Upper Intestinal Tract, Via Natural or Artificial Opening Endoscopic (ICD-10-PCS; CPT 43235; principal; 2023-11-22 14:00)
DX: K22.70 Barrett's esophagus without dysplasia (principal); K21.9 Gastro-esophageal reflux disease without esophagitis; K44.9 Diaphragmatic hernia without obstruction or gangrene; K31.9 Disease of stomach and duodenum, unspecified; R13.10 Dysphagia, unspecified; R10.12 Left upper quadrant pain; R63.4 Abnormal weight loss; K63.5 Polyp of colon; K57.30 Diverticulosis of large intestine without perforation or abscess without bleeding; K64.0 First degree hemorrhoids; Z68.33 Body mass index [BMI] 33.0-33.9, adult
CPT/HCPCS: 43239; 43249; 45385; C1726; J7120

== ENCOUNTER 2024-07-18 09:21 | Emergency (ER) | payer MEDICAID, SELFPAY ==
[2024-07-18 09:21] VITALS: BP 163/103; PULSE 94; RESP 22; TEMP 36.8; O2SAT 96; BMI 36.0
--- NOTE | 2024-07-18 09:23 | ECG_ITS ---
APPROVED REPORT Exam: Resting ECG HR:83 bpm ECG Measurements Heart Rate 83 AXES MS 168 P 64 QRSd 94 QRS 62 QT 337 T 38 QTc 376 Conclusion Sinus rhythm Electronically signed by : ADONAY RHODES, 07/20/2024 11:41:12
--- NOTE | 2024-07-18 09:28 | ED_ITS ---
Discharge Plan Disposition Patient Disposition: Home, Self-Care Chief Complaint: Chest Pain Prescriptions Prescriptions: No Action nitroglycerin 0.4 mg tablet, sublingual 0.4 mg SUBLINGUAL Q5M PRN (Reason: chest pain) Qty: 25 0RF Rx Instructions: do not exceed 3 doses per episode cetirizine [Zyrtec] 10 mg tablet 10 mg PO DAILY PRN (Reason: allergy symptoms) Qty: 30 3RF albuterol sulfate 90 mcg/actuation HFA aerosol inhaler 2 puff inhalation Q4-6H PRN (Reason: shortness of breath or wheezing) Qty: 8.5 2RF carvedilol 6.25 mg tablet 6.25 mg PO BID Qty: 180 3RF pantoprazole 40 mg tablet,delayed release (DR/EC) 40 mg PO DAILY Qty: 30 6RF tadalafil [Cialis] 5 mg tablet 5 mg PO DAILY Qty: 30 2RF fluticasone propion-salmeterol [Advair Diskus] 100-50 mcg/dose blister with device 1 inh inhalation BID Qty: 60 2RF clopidogrel [Plavix] 75 mg tablet 75 mg PO QDAY Qty: 90 3RF losartan-hydrochlorothiazide 100-25 mg tablet 1 tab PO DAILY Qty: 90 3RF atorvastatin [Lipitor] 80 mg tablet 80 mg PO DAILY Referrals Follow up/Referrals: Jarod Miller APRN [Primary Care Provider] - See instructions Activity Restrictions/Add. Instructions Additional Instructions/Restrictions: Call your family doctor to establish care for this visit to the emergency department and schedule follow-up within 48 hours to ensure improvement. If you have any worsening of your condition or any other concerning signs or symptoms, return to the emergency department or your primary care doctor for further evaluation. Clinical Impressions Clinical Impression: Acute exacerbation of chronic obstructive pulmonary disease Print Language Print Language: Telugu Discharge ED Provider: Ishan Schilling HPI General Chief Complaint: Chest Pain Stated Complaint: chest pain Time Seen by Provider: 07/18/24 09:27 History of Present Illness HPI narrative: Please note that above description of symptoms, in this electronic medical record under categorization of recalled from ER triage doctor by RN are reflective of an initial nursing assessment, however, is not reflective of my full history and physical exam that was personally taken and clarified. Consequentially, this preceding description of symptoms, which may include the patient's categorized chief complaint in the EMR, do not reflect my personal clinical impression, and the ultimate description of history of present illness and patient stated complaints should be deferred to this section of the note. Unless stated otherwise or congruent with this section of the note, additional signs, symptoms, or incongruence should be interpreted as inaccurate with my clinical impression. Related Data Home Medications ?Medication ?Instructions ?Recorded ?Confirmed atorvastatin 80 mg tablet (Lipitor) 80 mg PO DAILY Cholesterol 08/27/22 03/30/24 Previous Rx's ?Medication ?Instructions ?Recorded nitroglycerin 0.4 mg sublingual 0.4 mg sublingual Q5M PRN chest 10/20/21 tablet pain #25 tabs cetirizine 10 mg tablet (Zyrtec) 10 mg PO DAILY PRN allergy 05/11/23 symptoms #30 tabs albuterol sulfate 90 mcg/actuation 2 puff inhalation Q4-6H PRN 09/16/23 aerosol inhaler shortness of breath or wheezing #8.5 grams carvedilol 6.25 mg tablet 6.25 mg PO BID Hypertension #180 12/23/23 tabs fluticasone 100 mcg-salmeterol 50 1 inh inhalation BID #60 ea 12/28/23 mcg/dose blistr powdr for inhalation (Advair Diskus) pantoprazole 40 mg tablet,delayed 40 mg PO DAILY #30 tabs 12/28/23 release tadalafil 5 mg tablet (Cialis) 5 mg PO DAILY #30 tabs 12/28/23 clopidogrel 75 mg tablet (Plavix) 75 mg PO QDAY blood 03/15/24 thinner-stents\ #90 tabs losartan 100 1 tab PO DAILY bp #90 tabs 06/07/24 mg-hydrochlorothiazide 25 mg tablet Allergies Allergy/AdvReac Type Severity Reaction Status Date / Time No Known Allergies Allergy Verified 03/30/24 09:22 [facility] Disclaimer: The information contained in this section may have been updated after the patient was seen, as this information can be updated by other users. Medical History (Updated 07/18/24 @ 11:21 by Ishan Schilling MD) Coronary artery disease Wan's esophagus with dysplasia, unspecified Tobacco user Left shoulder pain Complete rotator cuff tear of left shoulder SLAP lesion of left shoulder Abnormal cardiovascular stress test Atypical angina Erectile dysfunction Obesity (BMI 30-39.9) Chest pain Hypertension Laceration of right hand Fracture of fifth metacarpal bone Degloving injury of right hand Crush injury of hand Dyspnea Hyperlipidemia Coronary arteriosclerosis Hypertensive heart disease Encounter for CDL (commercial driving license) exam Shortness of breath Dysphagia History of COVID-19 Allergies Hyperlipidemia Hypertension Surgical History (Updated 07/18/24 @ 09:29 by Alba Del Cid RN) Status post shoulder surgery History of coronary artery stent placement History of hand surgery History of cholecystectomy Family History Other Family history of stroke Social History Smoking Status: Current every day smoker tobacco type: cigarettes packs per day: 1 years smoked: 35 alcohol intake: current alcohol intake frequency: holidays/special occasions only substance use type: denies use current occupational status: employed Travel in the last 8 weeks?: None household members: spouse housing: house caffeine: Yes Have you lived/traveled outside [place] in past 30 days?: No Contact w/someone who lives/traveled outside [place] past 30 days?: No Exposure to someone with infectious disease in past 14 days?: No Do you have a fever (greater than 100.4 F or 38 C)?: No Have you tested positive for COVID-19?: No Exposed to someone with COVID-19 in past 14 days?: No Do you have a sore throat?: No Do you have a cough?: No Do you have any weakness?: No Do you have any diarrhea?: No Are you experiencing any unusual bleeding?: No Do you have any muscle aches/pain?: No Do you have any abdominal pain?: No Are you experiencing loss of taste or smell?: No Other Medical History Have you received the Flu Vaccine for this season: No Have you received the Pneumonia Vaccine: No ROS Obtained: Yes All systems reviewed & no additional complaints except as documented Physical Exam General General appearance: alert Neck Neck exam: Present trachea midline Chest Chest inspection: Present normal inspection and symmetric chest wall rise Respiratory Respiratory exam: Present normal lung sounds bilaterally; Absent respiratory distress, wheezes, stridor, accessory muscle use or prolonged expiratory phase Cardiovascular Cardiovascular exam: Present regular rate, normal rhythm and other (Pulses equal and symmetric in upper and lower extremities) Extremities Exam Extremities exam: Absent edema Neurological Exam Neurological exam: Present alert, oriented X3 and CN II-XII intact Skin Skin exam: Present warm and dry; Absent cyanosis, diaphoresis or pallor HEART Score HEART Score HEART Score assessment performed?: Yes History (anamnesis): Moderately suspicious ECG: Normal Age: 45-65 years Risk factors: 3 or more risk factors Troponin: </= normal limit HEART Score: 4 Procedures Smoking Cessation Time Spent Discussing Smoking Cessation w/Patient (min): 10 Patient Acknowledges Need for Cessation: Yes Critical Care Critical Care Time Critical Care Time: No Medical Decision Making Medical Records Medical records reviewed: Yes I reviewed the patient's medical records. Yang Inquiry Pt receiving controlled substance: No Yang was queried for this patient: No Vital Signs Vital Signs: 07/18/24 09:21 07/18/24 09:38 07/18/24 09:38 Temperature 98.3 F Temperature Source Oral Pulse Rate 90 66 Pulse Rate [Right] 94 H Respiratory Rate 22 Blood Pressure 116/79 Blood Pressure [Right Arm] 163/103 H Blood Pressure Mean [Right Arm] 123 Blood Pressure Source Automatic Cuff Blood Pressure Source [Right Arm] Automatic Cuff 02 Sat by Pulse Oximetry 96 98 Oxygen Delivery Method Room Air Room Air Lab Data Labs: Lab Results 07/18/24 09:30: WBC 8.3, RBC 5.29, Hgb 16.7, Hct 46.6, MCV 88.1, MCH 31.6 H, M CHC 35.8 H, RDW 12.6, Plt Count 264, MPV 9.8, Neut % (Auto) 68.1, Lymph % (Auto) 20.9, [place] % (Auto) 9.9 H, Eos % (Auto) 0.0 L, Baso % (Auto) 0.7, Neut # (Auto) 5.7, Lymph # (Auto) 1.7, [place] # (Auto) 0.8, Eos # (Auto) 0.0, Baso # (Auto) 0.1, Sodium 134 L, Potassium 4.0, Chloride 106, Carbon Dioxide 23, Anion Gap 9.0, BUN 13, Creatinine 0.90, Estimated Creat Clear 137, Estimated GFR 88, Est GFR ( Amer) 106, Glucose 118 H, Calcium 9.8, Magnesium 1.9, Total Bilirubin 0.6, AST 40, ALT 30, Alkaline Phosphatase 65, Troponin I < 0.01, NT-Pro-B Natriuret Pep < 20.0, Total Protein 7.3, Albumin 4.7, Globulin 2.6, Albumin/Globulin Ratio 1.8, HCV Ab MARIA L w/Rflx PCR Qn Negative, HIV Ag/Ab Combo Qual Negative 07/18/24 09:31: VBG pH 7.43 H, VBG pCO2 32.0 L, VBG pO2 177.3 H, VBG HCO3 20.9 L , VBG Total CO2 21.8 L, VBG O2 Saturation 99.2 H, VBG Base Excess -3.4 L, VBG Lactic Acid 2.5 H 07/18/24 09:30 07/18/24 09:30 Response Orders (Tests/Meds): ED MEDICATIONS Discontinued Medications Generic Name Dose Route Start Last Admin Trade Name Freq PRN Reason Stop Dose Admin Albuterol/Ipratropium 9 ml 07/18/24 09:52 07/18/24 10:06 Ipratropium/Albuterol 3 Ml Neb IH 07/18/24 09:53 9 ml ONCE ONE Administration Aspirin 324 mg 07/18/24 09:52 07/18/24 10:05 Aspirin 81mg Chewable Tablet PO 07/18/24 09:53 324 mg ONCE ONE Administration ORDERS Category Date Time Status CXR --portable [XR chest portable] Stat Exams 07/18/24 09:31 Taken Complete Blood Count Auto Diff Stat Lab 07/18/24 09:30 Completed Comprehensive Metabolic Panel Stat Lab 07/18/24 09:30 Completed HIV Combo Stat Lab 07/18/24 09:30 Completed Hepatitis C Ab Qual. W/ RFX Stat Lab 07/18/24 09:30 Completed Lactate Venous Stat Lab 07/18/24 09:31 Ordered Magnesium Stat Lab 07/18/24 09:30 Completed NT Pro Brain Natriuretic Pep. Stat Lab 07/18/24 09:30 Completed Troponin I Q3H Lab 07/18/24 09:30 Completed Troponin I Q3H Lab 07/18/24 12:30 Ordered Venous Blood Gas Stat RT 07/18/24 09:31 Completed MDM Narrative Medical Decision Narrative: 53-year-old male with history of COPD still smoking 1 pack/day, GERD, H. pylori status posttreatment, Wan's esophagus, hypertension, hyperlipidemia, CAD status post stenting x 2 in the LAD presenting with chest tightness. He states that he started feeling tight in his chest last night into this morning, 07/18. States that it feels like is across the top of his chest and around to his back. Chest pain does not radiate through to his back. No neurologic deficits, syncope, diaphoresis, nausea or vomiting. He does state that he has been mildly short of breath. Dry cough associated. No lower extremity edema, PND, orthopnea. Did take a nitroglycerin earlier today, states that it did seem to help. History was obtained via conversation with patient and . On arrival, patient hemodynamically stable, alert, oriented x4, appropriate, GCS 15, moving all extremities spontaneously, pupils equal and reactive to light. Full physical exam performed and significant for well-appearing male no acute distress. Lungs with expiratory wheezes heard throughout expiration bilaterally. No focal breath sounds. Cardiac exam without murmurs gallops or rubs. No lower extremity edema. Pulses equal and symmetric, neurologically intact and ambulatory. Differential includes COPD exacerbation, bronchitis, pneumonia, microvascular coronary artery disease, CHF, ACS, ND, coronary artery dissection, pneumothorax, PE, dissection, pericarditis, myocarditis, pneumothorax, aortic aneurysm, among others Patient was given aspirin and DuoNebs for symptomatic management and correction of underlying abnormalities. Patient placed on continuous cardiac monitoring and continuous pulse ox with initial blood pressure 163/103, heart rate 94, saturation 96% on room air. Independent interpretation of EKG shows sinus rhythm 83 bpm with IA 168, QRS 94, QTc 376. Normal axis no acute ischemic change. Workup independently interpreted and significant for nonactionable CBC or chemistry. Troponin and BNP negative. Patient's VBG with mild metabolic acidosis and respiratory alkalosis. On independent interpretation of imaging, patient's lungs appear inflamed, but otherwise no acute intrathoracic process. See radiology read for full review of final results. Heart score 4. On reevaluation, patient states he is feeling much better, completely baseline and no complaints after DuoNeb's. Given Decadron 1 dose here. Given patient presentation, workup, history, this most likely represents COPD exacerbation. Because patient at baseline without signs or symptoms of clinical decompensation, deemed appropriate for discharge. Results were relayed to patient who voiced understanding and were agreeable to outpatient management and follow up. I discussed my clinical impression with patient and answered all questions. At this time, the evidence for any other entities in the differential is insufficient to warrant any further testing or ED observation. This was explained as well. Advisory was given that persistent or worsening symptoms require further evaluation. I confirmed the understanding of this discussion. Zoogler disclaimer Much of this encounter note is an electronic hydrographic surveyor spoken language to printed text. Electronic hydrographic surveyor of the spoken language may permit errors. Although I have reviewed the note, some errors may still exist.
--- NOTE | 2024-07-18 09:31 | XR_ITS ---
FINAL REPORT CLINICAL HISTORY: .CHEST PAIN, RECENT HEART STENTS COMPARISON: 08/26/2022 FINDINGS: SINGLE VIEW CHEST The heart is normal in size. The mediastinum is unremarkable. The lungs are clear. There is no pneumothorax. IMPRESSION: No acute process. Reviewed, Interpreted and Dictated by Clifton Dorsey MD Transcribed by Lawanda Garcia Authenticated and [facility]
[2024-07-18 09:38] VITALS: BP 116/79; PULSE 66; PULSE 90; O2SAT 98
[2024-07-18 09:38] LABS: VBG Base Excess -3.4 mmol/L (-2.4-2.3); VBG HCO3 20.9 mmol/L (23-30); VBG Oxygen Saturation 99.2 % (50-70); VBG PH 7.43 mmol/L (7.31-7.41); VBG PO2 177.3 mmol/L (28-40); VBG Total CO2 21.8 mmol/L (23-27)
[2024-07-18 09:38] LABS: Basophils # 0.1 K/mm3 (0-0.2); Basophils % 0.7 % (0.1-2.0); Hematocrit 46.6 % (42.0-52.0); Hemoglobin 16.7 g/dL (14.1-18.0); Immature Granulocytes # 0.03 10^3uL; Immature Granulocytes % 0.4 %; Lymphocytes # 1.7 K/mm3 (0.7-4.5); Lymphocytes % 20.9 % (10-50); Mean Corpuscular HGB Conc 35.8 g/dL (31.8-35.4); Mean Corpuscular Hemoglobin 31.6 pg (27.0-31.2); Mean Corpuscular Volume 88.1 fl (80-94); Mean Platelet Volume 9.8 fl (7.4-10.4); Monocytes # 0.8 K/mm3 (0.1-1.0); Monocytes % 9.9 % (1.7-9.3); Neutrophils # 5.7 K/mm3 (1.8-7.8); Neutrophils % 68.1 % (37.0-80.0); Nucleated Red Blood Cells # 0 10^3/uL; Nucleated Red Blood Cells % 0 %; Platelet Count 264 K/mm3 (142-424); Red Blood Count 5.29 M/mm3 (4.60-6.20); Red Cell Distribution Width 12.6 % (11.5-17.5); Red Cell Distribution Width-SD 40.6 fL; White Blood Count 8.3 K/mm3 (4.8-10.8)
[2024-07-18 09:39] LABS: Lactate Venous 2.5 mmol/L (0.4-2.0)
[2024-07-18 09:43] LABS: Albumin Level 4.7 g/dl (3.5-5.0); Chloride 106 mmol/L (98-107)
[2024-07-18 09:44] LABS: Sodium 134 mmol/L (136-145)
[2024-07-18 09:46] LABS: Alanine Aminotransferase 30 U/L (12-78); Aspartate Amino Transferase 40 U/L (17-59); Blood Urea Nitrogen 13 mg/dl (9-20); Carbon Dioxide 23 mmol/L (22.0-30.0); Creatinine Clearance Estimated 137 mL/min (50-200); Estimated Glomerular Filt Rate 88 ml/min (>60); GFR (African American) 106 ML/MIN (>60)
[2024-07-18 09:47] LABS: Albumin/Globulin Ratio 1.8 (1.1-1.8); Alkaline Phosphatase 65 U/L (38-126); Bilirubin,Total 0.6 mg/dl (0.2-1.3); Calcium 9.8 mg/dl (8.4-10.2); Globulin 2.6 g/dL (1.3-3.2); Glucose 118 mg/dl (74-100); Magnesium 1.9 mg/dl (1.6-2.3); Total Protein,Serum 7.3 g/dl (6.3-8.2)
[2024-07-18 09:57] LABS: NT Pro Brain Natriuretic Pep. < 20.0 pg/mL (0-125)
[2024-07-18] MEDS: ASPIRIN 81MG CHEWABLE TABLET 324 MG PO (10:05)
[2024-07-18] MEDS: IPRATROPIUM/ALBUTEROL 3 ML NEB 9 ML IH (10:06)
--- NOTE | 2024-07-18 10:30 | PC.NURSE ---
Called Lab to check on the status of troponin level. Cherie in the lab states it will be [address] Schilling notified of the delay.
[2024-07-18 10:35] LABS: Troponin I < 0.01 ng/ml (0.00-0.034)
[2024-07-18 10:55] LABS: HIV Combo NEGATIVE (Negative)
[2024-07-18 11:03] LABS: Hepatitis C Ab Qual. W/ RFX NEGATIVE (Negative)
[2024-07-18] MEDS: DEXAMETHASONE 4MG TABLET 10 MG PO (11:39)
[2024-07-18 11:40] VITALS: BP 116/78; PULSE 75; RESP 17; TEMP 36.7; O2SAT 97
[2024-07-18 13:40] LABS: Reflex Lactic Add Lactic Reflex
== END 2024-07-18 11:41 | disposition home or self-care (01) ==
PROVIDERS: Emergency Provider Emergency Medicine; PCP Nurse Practitioner Family
DX: J44.1 Chronic obstructive pulmonary disease with (acute) exacerbation (principal); R07.89 Other chest pain; F17.210 Nicotine dependence, cigarettes, uncomplicated; E87.3 Alkalosis; E87.21 Acute metabolic acidosis; Z11.59 Encounter for screening for other viral diseases; Z11.4 Encounter for screening for human immunodeficiency virus [HIV]
CPT/HCPCS: 71045; 80053; 82803; 83735; 83880; 84484; 85025; 86803; 87389; 93005; 99285; J8540

== ENCOUNTER 2024-08-17 09:07 | Outpatient (CLI) | payer MEDICAID, SELFPAY ==
[2024-08-17 09:33] LABS: Basophils # 0.1 K/mm3 (0-0.2); Eosinophils # 0.2 Kmm3 (0.0-0.4); Eosinophils % 2.5 % (0.1-12.0); Hematocrit 46.8 % (42.0-52.0); Hemoglobin 15.9 g/dL (14.1-18.0); Immature Granulocytes # 0.02 10^3uL; Immature Granulocytes % 0.3 %; Lymphocytes # 1.5 K/mm3 (0.7-4.5); Lymphocytes % 24.9 % (10-50); Mean Corpuscular Hemoglobin 30.5 pg (27.0-31.2); Mean Corpuscular Volume 89.7 fl (80-94); Mean Platelet Volume 9.5 fl (7.4-10.4); Monocytes # 0.6 K/mm3 (0.1-1.0); Monocytes % 9.3 % (1.7-9.3); Neutrophils # 3.8 K/mm3 (1.8-7.8); Nucleated Red Blood Cells # 0 10^3/uL; Nucleated Red Blood Cells % 0 %; Platelet Count 262 K/mm3 (142-424); Red Blood Count 5.22 M/mm3 (4.60-6.20); Red Cell Distribution Width 12.9 % (11.5-17.5); Red Cell Distribution Width-SD 41.9 fL; White Blood Count 6.1 K/mm3 (4.8-10.8)
[2024-08-17 11:57] LABS: Alanine Aminotransferase 21 U/L (12-78); Albumin Level 4.7 g/dl (3.5-5.0); Alkaline Phosphatase 73 U/L (38-126); Anion Gap 10.4 mEq/L (5-15); Aspartate Amino Transferase 32 U/L (17-59); Bilirubin,Direct 0.3 mg/dl (0.0-0.4); Bilirubin,Indirect 0.4 mg/dL (0.0-0.9); Bilirubin,Total 0.7 mg/dl (0.2-1.3); Bilirubin,Unconjugated 0.4 mg/dL (0.0-1.1); Blood Urea Nitrogen 13 mg/dl (9-20); Calcium 9.8 mg/dl (8.4-10.2); Carbon Dioxide 23 mmol/L (22.0-30.0); Chloride 106 mmol/L (98-107); Chol/HDL Ratio 5.1 (1-3.5); Cholesterol 180 mg/dl (140-200); Estimated Glomerular Filt Rate 78 ml/min (>60); GFR (African American) 94 ML/MIN (>60); Glucose 104 mg/dl (74-100); HDL Cholesterol 35 mg/dl (40-60); Magnesium 2.1 mg/dl (1.6-2.3); Potassium 4.4 mmoL/L (3.5-5.1); Sodium 135 mmol/L (136-145); Total Protein,Serum 7.3 g/dl (6.3-8.2); Triglycerides 129 mg/dl (30-150); VLDL Cholesterol 26 mg/dL (0-40)
[2024-08-17 12:08] LABS: Direct LDL Cholesterol 113.99 mg/dL (100-129)
[2024-08-17 12:27] LABS: Thyroid Stimulating Hormone 2.05 uIU/mL (0.465-4.68)
== END 2024-08-17 23:59 | disposition home or self-care (01) ==
PROVIDERS: PCP Nurse Practitioner Family; Visit Provider Physician Assistant
DX: I25.10 Atherosclerotic heart disease of native coronary artery without angina pectoris (principal); I10 Essential (primary) hypertension
CPT/HCPCS: 36415; 80048; 80061; 80076; 83735; 84439; 84443; 85025